=== PATIENT | male | born 1970 | race Caucasian/White ===

== ENCOUNTER 2017-08-12 08:21 | Emergency (ER) | payer SELFPAY ==
[~2017-08-12] VITALS: Ht 182.9 cm; Wt 75.0 kg
[~2017-08-12 08:21] MED LIST: DRV65 PO; SULF800T23 PO
[2017-08-12 08:29] VITALS: TEMP 36.6; Ht 182.9 cm; Wt 75.0 kg
[2017-08-12] MEDS ORDERED: OXYCODONE HCL IR 5 MG TAB (IMMEDIATE RELEASE) PO STA (08:40)
[2017-08-12 08:44] VITALS: O2SAT 100
--- NOTE | 2017-08-12 09:49 | DIAGNOSTIC IMAGING REPORT ---
C-SPINE ROUTINE 4 OR 5 VIEWS CLINICAL HISTORY: 47 years-old Male presenting with Neck pain. TECHNIQUE: Lateral, bilateral oblique, frontal, and open-mouth odontoid views of the cervical spine were obtained. COMPARISON: None. FINDINGS: Straightening of normal cervical lordosis. Degenerative change focally at C5-6. The C7 vertebral body is fully included within the [id number]. Mild osseous neural foraminal narrowing may be present at C5-6, greater on the left. Normal predental interval. No radiographic evidence of fracture or subluxation. The lateral masses of C1 articulate normally with C2. No prevertebral soft tissue swelling. IMPRESSION: Focal degenerative change at C5-6 with suspected left greater than right osseous neural foraminal narrowing at this level. Electronically signed by: Zac Cohen M.D. 08/12/2017 9:47 AM Dictated Date/Time: 08/12/2017 9:46 AM
--- NOTE | 2017-08-12 09:49 | DIAGNOSTIC IMAGING REPORT ---
RIGHT RIBS UNILATERAL WITH PA CHEST CLINICAL HISTORY: Right rib and back pain. COMPARISON STUDY: No previous studies for comparison. FINDINGS: The erect chest reveals no pneumothorax. There is an old distal right clavicular deformity. There is no focal pulmonary consolidation. There are bilateral rib deformities. In the absence of acute traumatic history, these are likely old. IMPRESSION: 1. No pneumothorax 2. Bilateral rib deformities. In the absence of an acute traumatic history, these are likely old Electronically signed by: Kerwin Billy M.D. 08/12/2017 9:48 AM Dictated Date/Time: 08/12/2017 9:45 AM
--- NOTE | 2017-08-12 09:50 | DIAGNOSTIC IMAGING REPORT ---
THORACIC SPINE 3 VIEWS ROUTINE CLINICAL HISTORY: 47 years-old Male presenting with R rib/back pain. TECHNIQUE: 3 views of the thoracic spine were obtained. COMPARISON: None. FINDINGS: Normal thoracic arthrosis. Allowing for overlapping bony structures, no evidence of vertebral body height loss to suggest fracture deformity. No evidence of subluxation. Partially visualized degenerative change at C5-6. The thoracolumbar junction is grossly normal. Visualized portions of the lungs and pleural spaces clear. IMPRESSION: Normal thoracic spine. Partially visualized degenerative change in the lower cervical region. Electronically signed by: Zac Cohen M.D. 08/12/2017 9:49 AM Dictated Date/Time: 08/12/2017 9:47 AM
--- NOTE | 2017-08-12 10:00 | DIAGNOSTIC IMAGING REPORT ---
L-SPINE MIN 4 VIEWS ROUTINE CLINICAL HISTORY: R rib/back pain COMPARISON STUDY: No previous studies for comparison. FINDINGS: There is a mild levoscoliosis. The bones are mildly osteopenic. No acute fractures or subluxations are visualized. There is mild gaseous prominence of the colon. IMPRESSION: Mild scoliosis. No acute fractures or subluxations identified. Electronically signed by: Kerwin Billy M.D. 08/12/2017 9:59 AM Dictated Date/Time: 08/12/2017 9:58 AM
[2017-08-12 10:39] VITALS: PULSE 52; O2SAT 98
[2017-08-12] MEDS ORDERED: OXYC1TAB3 PO (10:58)
[2017-08-12 11:15] VITALS: BP 155/96
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
== END 2017-08-12 11:20 | disposition home or self-care (01) ==
LOC: C.EDB 08:22 → C.EDA 11:20
DX: S20.211A Contusion of right front wall of thorax, initial encounter (principal); S20.229A Contusion of unspecified back wall of thorax, initial encounter; V86.59XA Driver of other special all-terrain or other off-road motor vehicle injured in nontraffic accident, initial encounter; F17.200 Nicotine dependence, unspecified, uncomplicated; Z80.9 Family history of malignant neoplasm, unspecified; Z83.3 Family history of diabetes mellitus; Z82.49 Family history of ischemic heart disease and other diseases of the circulatory system

== ENCOUNTER 2022-03-22 08:07 | Inpatient (IN) ==
[2022-03-22] MEDS ORDERED: SODIUM CHLORIDE 0.9% 1000ML 1,000 ML IV STA (08:31)
--- NOTE | 2022-03-22 08:40 | Emergency Department Note ---
Impression & Plan Lung mass, Smoker, Atypical chest pain, Alcohol abuse, Acute hyponatremia, Abnormal CT of the head, UTI (urinary tract infection) ED Provider Note NAME: KAYLIN JEWELL AGE: 51 SEX: M : 1970 ARRIVES VIA: Walk-In INFORMANT: Patient, ED PROVIDER(S): Murali Perdue DO CHIEF COMPLAINT: Dizziness HPI: The patient is a 51-year-old male who presented to the emergency department for an evaluation of dizziness. The patient describes headache and dizziness upon standing. He describes it as a near syncope. He describes it as feeling like he will pass out. The patient has had the symptoms for approximately 3 days. He states he also notices bilateral chest pain as well as difficulty breathing. He describes a headache. He does not know if he has a fever he was unable to check his temperature at home. He denies having any recent traveling. He also complains of body aches and muscle cramps. He states he has not been able to eat well for the last 3 days as well. He has had no exposure to COVID- 19 as far as he knows. He states he does use tobacco products. He has now been seen by provider for the symptoms. He presented to the emergency department today because symptoms started to worsen this morning. He denies having any unilateral weakness. ROS: See above HPI for pertinent positives & negatives. A total of 10 systems reviewed and were otherwise negative. PAST MEDICAL HISTORY: See Below PAST SURGICAL HISTORY: See Below FAMILY HISTORY: See Below SOCIAL HISTORY: See Below HOME MEDICATIONS: See Below ALLERGIES: See Below VITALS: See Below PHYSICAL EXAMINATION: GENERAL: Patient is awake and alert. He is somewhat listless appearing. EYES: The conjunctivae are clear. The pupils are round and reactive. EARS, NOSE, MOUTH AND THROAT: The nose is without any evidence of any deformity. Mucous membranes are dry. NECK: The neck is nontender and supple. RESPIRATORY: Normal respiratory effort is noted there is no evidence of wheezing rhonchi or rales CARDIOVASCULAR: Regular rate and rhythm noted there no murmurs rubs or gallops normal S1 normal S2. GASTROINTESTINAL: The abdomen is soft. Abdomen is nontender. MUSCULOSKELETAL/EXTREMITIES: There is no evidence of gross deformity full range of motion is noted in the hips and shoulders. SKIN: There is no obvious evidence of any rash. There are no petechiae, pallor or cyanosis noted. NEUROLOGIC: Patient is awake alert and oriented x3 strength is symmetric patellar reflexes are 2+ bilaterally MEDICAL DECISION MAKING: The patient is a 51-year-old male who does have a history of tobacco use as well as alcohol use who presented to the emergency department because of dizziness and generalized weakness. He was also experiencing some nausea and near syncope. He states he also had some chest pain and difficulty breathing. The patient was found to have an abnormal chest x-ray which showed a large pulmonary mass. Given his history further radiographic studies were obtained. He may have metastatic disease noted in the liver as well as in the [employer]ICE [employer] system. He was found of hyponatremia. I am unsure if this is secondary to an SIADH phenomenon from the pulmonary mass or from the abnormal head CT the head or if this is chronic secondary to his alcohol use. He was treated with IV fluids in the emergency department. He was reevaluated multiple times. The patient does not have good outpatient follow-up. For this reason I [facility] They have agreed to evaluate the patient in the emergency department for further management and disposition. He was also found to have signs of urinary tract infection on urinalysis. For this reason he was given IV antibiotics. Triage Nursing notes reviewed. Prior medical records reviewed Vital Signs: reviewed and remarkable for no significant abnormalities Differential diagnosis: Benign positional vertigo, dehydration, hypovolemia, anemia, tumor, infection, hypoglycemia, electrolyte abnormalities, cardiac sources, intracerebral event, toxicologic, neurologic, as well as other pathologies. ER treatment provided: See below Diagnostics interpreted by me: ECG: EKG was obtained in the emergency department. My interpretation is normal sinus rhythm at 65 bpm. There is no ectopy. Nonspecific T wave abnormalities were noted in the anterior leads. There was a suggestion of a U wave. No previous tracing was available. Cardiac Monitoring: An order was placed for continuous cardiac monitoring. The monitor shows a rate of 74 bpm with sinus rhythm. Laboratory studies: As stated above and show below. Imaging studies: See below Consultation(s): I discussed this case with Dr. Loomis who [facility]. Past Med/Surg History Medical History Alcohol abuse Back contusion Marijuana use Tobacco use Surgical History (Updated 03/22/22 @ 12:20 by Allison Loomis DO) No history of previous surgery Family History (Updated 03/22/22 @ 12:04 by Allison Loomis DO) Father Cancer Mother Hypertension Brother Brain cancer Social History (Updated 03/22/22 @ 12:22 by Allison Loomis DO) Smoking Status: Current every day smoker Hx Alcohol Use: Yes Alcohol type: beer Alcohol Intake Frequency: 4 or More x per/Week Alcohol Intake Frequency Comment: case per day Hx Substance Use: Yes Non-Prescribed Medications: Marijuana Current Living Situation: Alone How many Children do You have Comment: has one daughter who is a nurse Feels Safe at Home: Yes 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 [employer] Allergies Allergies Allergy/AdvReac Type Severity Reaction Status Date / Time Penicillins AdvReac Intermediate upset Unverified 03/22/22 11:12 stomach Home Meds Home Medications Medication Instructions Recorded Confirmed No Known Home Medications 03/22/22 03/22/22 Results & Data (ED) Vital Signs Vital Signs - 24 hr 03/22/22 08:11 03/22/22 08:51 Temperature 36.5 C Temperature Source Oral Pulse Rate 74 Pulse Rhythm Regular Pulse Strength Normal Respiratory Rate 20 Respiratory Effort / Characteristics Non-Labored Spontaneous Respiratory Depth Normal Respiratory Pattern Regular Blood Pressure 139/82 Blood Pressure Mean 101 Blood Pressure Position Sitting Pulse Oximetry 94 98 Oxygen Delivery Method Room Air Room Air Sepsis Recent Fever Within 48 Hours No Sepsis New/Unexplained Change in Mental Status No Sepsis Action Taken by Nursing No Action Required Home Medications Current Medication List: was personally reviewed by me Laboratory Data Attestation: I reviewed the patient's lab results. Result diagrams: 03/22/22 08:30 03/22/22 08:30 Lab Results 03/22/22 03/22/22 03/22/22 Range/Units 08:30 08:30 08:30 WBC 10.29 (4.8-10.8) K/uL RBC 3.80 L (4.7-6.1) M/uL Hgb 13.2 L (14.0-18.0) g/dL Hct 36.3 L (42-52) % MCV 95.5 (80-100) fL MCH 34.7 H (25-34) pg MCHC 36.4 H (32-36) g/dL RDW Std Deviation 43.5 (36.4-46.3) fL RDW Coeff of Juvenal 12.6 (11.5-14.5) % Plt Count 231 (130-400) K/uL MPV 9.8 (7.4-10.4) fL Immature Gran % (Auto) 0.5 % Neut % (Auto) 76.1 % Lymph % (Auto) 8.6 % [place] % (Auto) 14.4 % Eos % (Auto) 0.2 % Baso % (Auto) 0.2 % Neut # (Auto) 7.84 H (1.4-6.5) K/uL Lymph # (Auto) 0.88 L (1.2-3.4) K/uL [place] # (Auto) 1.48 H (0.11-0.59) K/uL Eos # (Auto) 0.02 (0-0.5) K/uL Baso # (Auto) 0.02 (0-0.2) K/uL Immature Gran # (Auto) 0.05 H (0.00-0.02) K/uL PT 11.1 (9.0-12.0) Seconds INR 1.0 (0.9-1.1) APTT 30.4 (21.0-31.0) Seconds PTT Ratio 1.1 D-Dimer 1490 H* (0-500) ug/L FEU Sodium (136-145) mmol/L Potassium (3.5-5.1) mmol/L Chloride (98-107) mmol/L Carbon Dioxide (21-32) mmol/L Anion Gap (3-11) BUN (6-23) mg/dl Creatinine (0.6-1.4) mg/dl Est Cr Clr Drug Dosing ml/min Est GFR ( Amer) ml/min Est GFR (Non-Af Amer) ml/min BUN/Creatinine Ratio (10-20) Glucose (70-99(Fasting)) mg/dl Osmolality (280-300) mOsm/kg Calcium (8.5-10.1) mg/dl Total Bilirubin (0.2-1.0) mg/dl AST (13-39) U/L ALT (7-52) U/L Alkaline Phosphatase (34-104) U/L Troponin I High Sens 2.6 (0-20) pg/ml Total Protein (6.0-8.3) gm/dl Albumin (3.4-5.0) gm/dl Globulin (2.5-4.0) gm/dl Albumin/Globulin Ratio (0.9-2) Lipase (11-82) U/L Urine Color Urine Appearance (Clear) Urine pH (4.5-7.5) Ur Specific [place] (1.000-1.030) Urine Protein (Negative) Urine Glucose (UA) (Negative) Urine Ketones (Negative) Urine Blood (Negative) Urine Nitrite (Negative) Urine Bilirubin (Negative) Urine Urobilinogen (Negative) Ur Leukocyte Esterase (Negative) Urine WBC (Auto) (0-5) /hpf Urine RBC (Auto) (0-4) /hpf U Hyaline Cast (Auto) (0-5) /lpf U Epithel Cells (Auto) (0-5) /lpf Urine Bacteria (Auto) (Negative) SARS-CoV-2, RNA, NAAT (NEGATIVE) 03/22/22 03/22/22 03/22/22 Range/Units 08:30 08:30 08:45 WBC (4.8-10.8) K/uL RBC (4.7-6.1) M/uL Hgb (14.0-18.0) g/dL Hct (42-52) % MCV (80-100) fL MCH (25-34) pg MCHC (32-36) g/dL RDW Std Deviation (36.4-46.3) fL RDW Coeff of Juvenal (11.5-14.5) % Plt Count (130-400) K/uL MPV (7.4-10.4) fL Immature Gran % (Auto) % Neut % (Auto) % Lymph % (Auto) % [place] % (Auto) % Eos % (Auto) % Baso % (Auto) % Neut # (Auto) (1.4-6.5) K/uL Lymph # (Auto) (1.2-3.4) K/uL [place] # (Auto) (0.11-0.59) K/uL Eos # (Auto) (0-0.5) K/uL Baso # (Auto) (0-0.2) K/uL Immature Gran # (Auto) (0.00-0.02) K/uL PT (9.0-12.0) Seconds INR (0.9-1.1) APTT (21.0-31.0) Seconds PTT Ratio D-Dimer (0-500) ug/L FEU Sodium 121 L (136-145) mmol/L Potassium 4.4 (3.5-5.1) mmol/L Chloride 86 L (98-107) mmol/L Carbon Dioxide 25 (21-32) mmol/L Anion Gap 10 (3-11) BUN 6 (6-23) mg/dl Creatinine 0.57 L (0.6-1.4) mg/dl Est Cr Clr Drug Dosing 145.0 ml/min Est GFR ( Amer) 135.9 ml/min Est GFR (Non-Af Amer) 117.2 ml/min BUN/Creatinine Ratio 10.5 (10-20) Glucose 101 H (70-99(Fasting)) mg/dl Osmolality 260 L (280-300) mOsm/kg Calcium 9.1 (8.5-10.1) mg/dl Total Bilirubin 0.8 (0.2-1.0) mg/dl AST 57 H (13-39) U/L ALT 39 (7-52) U/L Alkaline Phosphatase 153 H (34-104) U/L Troponin I High Sens (0-20) pg/ml Total Protein 7.9 (6.0-8.3) gm/dl Albumin 4.0 (3.4-5.0) gm/dl Globulin 3.9 (2.5-4.0) gm/dl Albumin/Globulin Ratio 1.0 (0.9-2) Lipase 123 H (11-82) U/L Urine Color Urine Appearance (Clear) Urine pH (4.5-7.5) Ur Specific [place] (1.000-1.030) Urine Protein (Negative) Urine Glucose (UA) (Negative) Urine Ketones (Negative) Urine Blood (Negative) Urine Nitrite (Negative) Urine Bilirubin (Negative) Urine Urobilinogen (Negative) Ur Leukocyte Esterase (Negative) Urine WBC (Auto) (0-5) /hpf Urine RBC (Auto) (0-4) /hpf U Hyaline Cast (Auto) (0-5) /lpf U Epithel Cells (Auto) (0-5) /lpf Urine Bacteria (Auto) (Negative) SARS-CoV-2, RNA, NAAT NEGATIVE (NEGATIVE) 04/23/22 Range/Units 08:50 WBC (4.8-10.8) K/uL RBC (4.7-6.1) M/uL Hgb (14.0-18.0) g/dL Hct (42-52) % MCV (80-100) fL MCH (25-34) pg MCHC (32-36) g/dL RDW Std Deviation (36.4-46.3) fL RDW Coeff of Juvenal (11.5-14.5) % Plt Count (130-400) K/uL MPV (7.4-10.4) fL Immature Gran % (Auto) % Neut % (Auto) % Lymph % (Auto) % [place] % (Auto) % Eos % (Auto) % Baso % (Auto) % Neut # (Auto) (1.4-6.5) K/uL Lymph # (Auto) (1.2-3.4) K/uL [place] # (Auto) (0.11-0.59) K/uL Eos # (Auto) (0-0.5) K/uL Baso # (Auto) (0-0.2) K/uL Immature Gran # (Auto) (0.00-0.02) K/uL PT (9.0-12.0) Seconds INR (0.9-1.1) APTT (21.0-31.0) Seconds PTT Ratio D-Dimer (0-500) ug/L FEU Sodium (136-145) mmol/L Potassium (3.5-5.1) mmol/L Chloride (98-107) mmol/L Carbon Dioxide (21-32) mmol/L Anion Gap (3-11) BUN (6-23) mg/dl Creatinine (0.6-1.4) mg/dl Est Cr Clr Drug Dosing ml/min Est GFR ( Amer) ml/min Est GFR (Non-Af Amer) ml/min BUN/Creatinine Ratio (10-20) Glucose (70-99(Fasting)) mg/dl Osmolality (280-300) mOsm/kg Calcium (8.5-10.1) mg/dl Total Bilirubin (0.2-1.0) mg/dl AST (13-39) U/L ALT (7-52) U/L Alkaline Phosphatase (34-104) U/L Troponin I High Sens (0-20) pg/ml Total Protein (6.0-8.3) gm/dl Albumin (3.4-5.0) gm/dl Globulin (2.5-4.0) gm/dl Albumin/Globulin Ratio (0.9-2) Lipase (11-82) U/L Urine Color Yellow Urine Appearance Clear (Clear) Urine pH 6.5 (4.5-7.5) Ur Specific [place] 1.010 (1.000-1.030) Urine Protein Trace H (Negative) Urine Glucose (UA) Negative (Negative) Urine Ketones Trace H (Negative) Urine Blood Negative (Negative) Urine Nitrite Negative (Negative) Urine Bilirubin Negative (Negative) Urine Urobilinogen Negative (Negative) Ur Leukocyte Esterase 2+ H (Negative) Urine WBC (Auto) >30 H (0-5) /hpf Urine RBC (Auto) 0-4 (0-4) /hpf U Hyaline Cast (Auto) 1-5 (0-5) /lpf U Epithel Cells (Auto) 0-5 (0-5) /lpf Urine Bacteria (Auto) 4+ H (Negative) SARS-CoV-2, RNA, NAAT (NEGATIVE) Administered Medications Discontinued Medications Sodium Chloride (Nss 1000ml) 1,000 mls @ 999 mls/hr IV .Q1H1M STA Stop: 03/22/22 09:31 Last Infusion: 03/22/22 09:49 Dose: 0 mls/hr Documented by: [id number] Admin: 03/22/22 08:48 Dose: 999 mls/hr Documented by: [id number] Ceftriaxone Sodium (Rocephin) 1,000 mg in 50 mls @ 100 mls/hr IV NOW STA Stop: 03/22/22 10:45 Last Infusion: 03/22/22 11:09 Dose: 0 mls/hr Documented by: [id number] Admin: 03/22/22 10:34 Dose: 100 mls/hr Documented by: [id number] Ioversol (Optiray 320 125ml) 120 ml IV ONCE ONE Stop: 03/22/22 10:10 Last Admin: 03/22/22 10:10 Dose: 120 ml Documented by: [id number] Imaging Data Radiologist's Impression: Chest X-Ray 03/22/22 08:31 XR chest 1V portable CLINICAL HISTORY: Atypical chest pain. COMPARISON STUDY: Chest radiograph August 12, 2017. FINDINGS: No pneumothorax or pleural effusion is noted. Cardiac size is normal. Note is made of a 5.8 cm circumscribed mass-like density which projects over the left mid to lower lung. This may be parenchymal or pleural-based. This is new since prior exam. A 2 cm nodular density projects over the right hilum. There is slight asymmetric prominence of the right hilum. No evidence for pulmonary edema. Multiple old bilateral rib fractures are incidentally noted. IMPRESSION: 1. 5.8 cm mass-like density which projects over the mid to lower left lung. This may be parenchymal or pleural-based. This is suspicious for a neoplastic proc ess. A CT of the chest with contrast is recommended for further evaluation. 2. 2 cm nodular density which projects over the right hilum which can also be assessed on follow-up chest CT. ACT 112: Positive. There are findings on this exam that require communication between the performing entity and the patient following Patient Test Result Information Act ([place] Act 112) guidelines. Electronically signed by: Telly Reilly M.D. 03/22/2022 9:10 AM Chest CTA 03/22/22 09:46 CT ANGIOGRAPHY OF THE CHEST, PULMONARY EMBOLUS PROTOCOL CLINICAL HISTORY: Shortness of breath. Dizziness. Abnormal chest radiograph. COMPARISON STUDY: Chest radiograph performed earlier today. Chest radiograph August 12, 2017. TECHNIQUE: Following IV administration of 120 mL of Optiray, helical axial images of the chest were obtained utilizing the pulmonary embolus protocol. Maximal intensity projections and sagittal and coronal reformats were viewed on an independent 3D workstation. IV contrast was administered without complication. Automated exposure control was utilized for the study. A dose lowering technique was utilized adhering to the principles of ALARA. CT DOSE: 890.86 mGy.cm FINDINGS: No pulmonary emboli are identified. However, the right upper and righ t lower lobe pulmonary arteries are narrowed by right hilar lymph nodes. Conglomerate right hilar node measures 4.1 x 2.9 cm. A subcarinal lymph node measures 2.2 x 1.9 cm. Note is made of a 5.4 cm lobulated mass within the left lower lobe. There is a 3 cm subpleural mass within the superior segment of the right lower lobe. Several smaller pulmonary nodules are noted. There is evidence for a previous granulomas process. No pneumothorax or pleural effusion is present. Right upper, middle and lower lobe bronchi are narrowed by adenopathy. No suspicious lesions within the bony thorax. There are multiple bilateral rib fractures. Note is made of innumerable hypodense hepatic lesions which measure up to approximately [address] bilateral adrenal nodules are present. Right adrenal nodule measures 1.6 cm. Peripancreatic lymph node measures 1.8 x 1.4 cm. IMPRESSION: 1. No pulmonary emboli identified. 2. 5.4 cm left lower lobe mass and 3 cm subpleural right lower lobe mass. Subcarinal and conglomerate right hilar lymphadenopathy. These findings are consistent with a neoplastic process. Differential considerations would include bronchogenic malignancy such as small cell. An abdominal primary given extensive hepatic metastatic disease is also within the differential. A CT of the abdomen and pelvis with IV contrast could be obtained for further evaluation. Pulmonary consultation is recommended. ACT 112: Negative or not required by law. Electronically signed by: Telly Reilly M.D. 03/22/2022 10:[address] 03/22/22 09:46 CT OF THE HEAD WITHOUT CONTRAST CLINICAL HISTORY: dizzy, pulmonary mass COMPARISON STUDY: No previous studies for comparison. TECHNIQUE: Helical axial images of the head were obtained without IV contrast. Automated exposure control was utilized for the study. A dose lowering technique was utilized adhering to the principles of ALARA. FINDINGS: No acute intracranial hemorrhage, midline shift or mass effect is present. Ventricular system is unremarkable. Basal cisterns are patent. There are no extra-axial collections. White matter hypodensity suggests small vessel disease. Note is made of 2 adjacent subependymal nodules along the occipital horn of the left lateral ventricle shown on axial image 14 of 28. The larger nodule measures 1.2 cm contains a calcification. No additional intracranial masses are identified. There are no suspicious calvarial lesions. IMPRESSION: 1. No acute intracranial hemorrhage or mass effect. 2. Two adjacent subependymal nodules along the occipital horn of left lateral ventricle. These are nonspecific. Although not typical for metastatic disease, this possibility cannot be completely excluded given the pulmonary and hepatic lesions. ACT 112: Negative or not required by law. Electronically signed by: Telly Reilly M.D. 03/22/2022 10:27 AM Discharge Plan Visit Data Chief Complaint: Vomiting Stated Complaint: VOMITING,HEADACHE, DIZZY, RIB PAIN ED Provider: Murali Perdue Discharge Problem: Lung mass, Smoker, Atypical chest pain, Alcohol abuse, Acute hyponatremia, Abnormal CT of the head, UTI (urinary tract infection) Patient Disposition: Admitted As Inpatient Discharge Instructions Interventions: ED Discharge Assessment Last Done: 03/22/22 11:46
[2022-03-22 09:04] LABS: Basophils # (auto) 0.02 K/uL (0-0.2); Basophils % (auto) 0.2 %; Eosinophils # (auto) 0.02 K/uL (0-0.5); Eosinophils % (auto) 0.2 %; Hematocrit (blood only) 36.3 % (42-52); Hemoglobin 13.2 g/dL (14.0-18.0); Immature Granulocytes # (auto) 0.05 K/uL (0.00-0.02); Immature Granulocytes % (auto) 0.5 %; Lymphocytes # (auto) 0.88 K/uL (1.2-3.4); Lymphocytes % (auto) 8.6 %; Mean Corpuscular Hemoglobin 34.7 pg (25-34); Mean Corpuscular Hgb Conc 36.4 g/dL (32-36); Mean Corpuscular Volume 95.5 fL (80-100); Mean Platelet Volume 9.8 fL (7.4-10.4); Monocytes # (auto) 1.48 K/uL (0.11-0.59); Monocytes % (auto) 14.4 %; Neutrophils # (auto) 7.84 K/uL (1.4-6.5); Neutrophils % (auto) 76.1 %; Platelet Count 231 K/uL (130-400); RDW Coefficient of Variation 12.6 % (11.5-14.5); RDW Standard Deviation 43.5 fL (36.4-46.3); White Blood Count 10.29 K/uL (4.8-10.8)
[2022-03-22 09:11] LABS: Appearance Urine Clear (Clear); Bacteria Urine Automated 4+ (Negative); Bilirubin Urine Negative (Negative); Blood Urine Negative (Negative); Color Urine Yellow; Epithelial Cell Urine Auto 0-5 /lpf (0-5); Glucose Urine UA Negative (Negative); Ketones Urine Trace (Negative); Leukocyte Esterase Urine 2+ (Negative); Nitrite Urine Negative (Negative); Protein Urine Trace (Negative); RBC Urine Automated 0-4 /hpf (0-4); Urobilinogen Urine Negative (Negative); WBC Urine Automated >30 /hpf (0-5); pH Urine 6.5 (4.5-7.5)
--- NOTE | 2022-03-22 09:11 | XRay Report ---
XR chest 1V portable CLINICAL HISTORY: Atypical chest pain. COMPARISON STUDY: Chest radiograph August 12, 2017. FINDINGS: No pneumothorax or pleural effusion is noted. Cardiac size is normal. Note is made of a 5.8 cm circumscribed mass-like density which projects over the left mid to lower lung. This may be paren chymal or pleural-based. This is new since prior exam. A 2 cm nodular density projects over the right hilum. There is slight asymmetric prominence of the right hilum. No evidence for pulmonary edema. Mu ltiple old bilateral rib fractures are incidentally noted. IMPRESSION: 1. 5.8 cm mass-like density which projects over the mid to lower left lung. This may be parenchymal o r pleural-based. This is suspicious for a neoplastic process. A CT of the chest with contrast is debbie mmended for further evaluation. 2. 2 cm nodular density which projects over the right hilum which can also be assessed on follow-up c hest CT. ACT 112: Positive. There are findings on this exam that require communication between the performing entity and the patient following Patient Test Result Information Act ([place] Act 112) guidelines. Electronically signed by: Telly Reilly M.D. 03/22/2022 9:10 AM
[2022-03-22 09:12] LABS: BUN Creatinine Ratio 10.5 (10-20); Bilirubin,Total 0.8 mg/dl (0.2-1.0); Calcium 9.1 mg/dl (8.5-10.1); Est GFR (African American) 135.9 ml/min; Est GFR (Non-African American) 117.2 ml/min; Globulin 3.9 gm/dl (2.5-4.0); Potassium 4.4 mmol/L (3.5-5.1); Total Protein 7.9 gm/dl (6.0-8.3)
[2022-03-22 09:26] LABS: Partial Thromboplastin Ratio 1.1; Partial Thromboplastin Time 30.4 Seconds (21.0-31.0); Prothrombin Time 11.1 Seconds (9.0-12.0)
[2022-03-22 09:49] LABS: D Dimer 1490 ug/L FEU (0-500)
[2022-03-22] MEDS ORDERED: OPTIRAY 320 125ml IV ONE (10:09)
[2022-03-22] MEDS ORDERED: cefTRIAXone SODIUM 1,000 MG/50 ML BAG IV STA (10:16)
--- NOTE | 2022-03-22 10:29 | CT Scan Report ---
CT OF THE HEAD WITHOUT CONTRAST CLINICAL HISTORY: dizzy, pulmonary mass COMPARISON STUDY: No previous studies for comparison. TECHNIQUE: Helical axial images of the head were obtained without IV contrast. Automated exposure con trol was utilized for the study. A dose lowering technique was utilized adhering to the principles o f ALARA. FINDINGS: No acute intracranial hemorrhage, midline shift or mass effect is present. Ventricular syst em is unremarkable. Basal cisterns are patent. There are no extra-axial collections. White matter hyp odensity suggests small vessel disease. Note is made of 2 adjacent subependymal nodules along the occ ipital horn of the left lateral ventricle shown on axial image 14 of 28. The larger nodule measures 1 .2 cm contains a calcification. No additional intracranial masses are identified. There are no suspic ious calvarial lesions. IMPRESSION: 1. No acute intracranial hemorrhage or mass effect. 2. Two adjacent subependymal nodules along the occipital horn of left lateral ventricle. These are no nspecific. Although not typical for metastatic disease, this possibility cannot be completely exclude d given the pulmonary and hepatic lesions. ACT 112: Negative or not required by law. Electronically signed by: Telly Reilly M.D. 03/22/2022 10:27 AM
--- NOTE | 2022-03-22 10:43 | CT Scan Report ---
CT ANGIOGRAPHY OF THE CHEST, PULMONARY EMBOLUS PROTOCOL CLINICAL HISTORY: Shortness of breath. Dizziness. Abnormal chest radiograph. COMPARISON STUDY: Chest radiograph performed earlier today. Chest radiograph August 12, 2017. TECHNIQUE: Following IV administration of 120 mL of Optiray, helical axial images of the chest were o btained utilizing the pulmonary embolus protocol. Maximal intensity projections and sagittal and cor onal reformats were viewed on an independent 3D workstation. IV contrast was administered without co mplication. Automated exposure control was utilized for the study. A dose lowering technique was ut ilized adhering to the principles of ALARA. CT DOSE: 890.86 mGy.cm FINDINGS: No pulmonary emboli are identified. However, the right upper and right lower lobe pulmonar y arteries are narrowed by right hilar lymph nodes. Conglomerate right hilar node measures 4.1 x 2.9 cm. A subcarinal lymph node measures 2.2 x 1.9 cm. Note is made of a 5.4 cm lobulated mass within the left lower lobe. There is a 3 cm subpleural mass within the superior segment of the right lower lobe . Several smaller pulmonary nodules are noted. There is evidence for a previous granulomas process. N o pneumothorax or pleural effusion is present. Right upper, middle and lower lobe bronchi are narrowe d by adenopathy. No suspicious lesions within the bony thorax. There are multiple bilateral rib fract ures. Note is made of innumerable hypodense hepatic lesions which measure up to approximately [address] bilateral adrenal nodules are present. Right adrenal nodule measures 1.6 cm. Peripancreatic lymp h node measures 1.8 x 1.4 cm. IMPRESSION: 1. No pulmonary emboli identified. 2. 5.4 cm left lower lobe mass and 3 cm subpleural right lower lobe mass. Subcarinal and conglomerate right hilar lymphadenopathy. These findings are consistent with a neoplastic process. Differential c onsiderations would include bronchogenic malignancy such as small cell. An abdominal primary given ex tensive hepatic metastatic disease is also within the differential. A CT of the abdomen and pelvis wi th IV contrast could be obtained for further evaluation. Pulmonary consultation is recommended. ACT 112: Negative or not required by law. Electronically signed by: Telly Reilly M.D. 03/22/2022 10:41 AM
--- NOTE | 2022-03-22 11:04 | History & Physical Report ---
Date of Service March 22, 2022 Assessment & Plan (1) Vomiting: Plan: Recent vomiting and intolerance to food. He also had diarrhea which is now resolved, but may have had a GI illness of some sort. Other etiologies include but are not limited to drugs including alcohol or street marijuana that may have chandler laced with toxin, alcoholic gastritis/esophagitis (no change in BMs and no bloody vomitus), or in response to his low sodium level. He also has a concerning finding on head CT which may be consistent with brain mets. Will work on correcting electrolytes, obtaining UDS and palliating when needed with antiemetics. MRI brain with contrast now. (2) Hyponatremia: Plan: Likely multifactorial from a combination of tea and toast diet, recent vomiting and poor PO intake, and possibly lung mass contributing. He received 1 L saline this am. Will give banana bag and repeat Na now. Trend throughout the day and correct no more than 129 today. Urine studies pending. (3) Lung mass: Plan: Concerning for malignancy in setting of cancer. Likely the cause of chest discomfort with negative troponin and CTA revealing no pneumonia or PE. Consult pulm for assistance with workup. (4) UTI (urinary tract infection): Plan: Rocephin started pending urine culture. (5) Blurry vision: Plan: CT head found two adjacent subependymal nodules along the occipital horn of left lateral ventricle. These are nonspecific. Although not typical for metastatic disease, this possibility cannot be completely excluded given the pulmonary and hepatic lesions. MRI brain with contrast now. (6) Smoker: Plan: Nicoderm patch added to regimen. (7) Alcohol abuse: Plan: Encouraged to quit smoking and drinking alcohol as this is terrible for his health. He verbalized understanding. No evidence of withdrawal at this time. Will add gabapentin taper given the high quantity of alcohol consumed. Ativan PRN. (8) DVT prophylaxis: Plan: SCDs, hold on chemoprophylaxis until brain mets ruled out Full Code Dispo-to PCU given the critical hyponatremia. All plans and findings were discussed with the patient and his mother at bedside in the ER. They verbalized understanding and agreement with the plan. Suspect no discharge until at least Thursday. Allison Loomis DO [facility] History of Present Illness Chief Complaint: vomiting Primary Care Provider: Wes A. Sulman, DO 51 yo M smoker presents with vomiting, chest pain and lighthead edness/presyncope. Found to have 5cm lung mass on the left per CT scan of the chest. UTI also present in man. Hyponatremia in setting of dehydration and new lung mass with Na 121. Received 1L NSS and Rocephin 1gm IV. Concerning features on CT head may indicate metastatic disease. Pt states that he began having vomiting and diarrhea 4-5 days ago. The diarrhea stopped but he hasn't been able to keep down anything to eat or drink. He is a heavy drinker of alcohol taking in a case of beer daily "on a good day" with last drink just prior to arrival this morning. He smokes 3 packs of rolled cigarettes daily and smokes marijuana "when I can get it." He describes a constant headache on the top of his head for the last 5 days and also blurry vision. He is nearsighted at baseline and typically uses OTC readers, but now has difficulty seeing signs at a distance. For his headache he reports taking 2 tylenol and 2 Advil three times daily for the past few days, and this hasn't helped his headache. He denies fevers, chills, but reports increased frequency of urination and during this 30 minute interview, he went to the bathroom at least twice. Has a cough present which he describes as his typical "smoker's cough." This is nonproductive and he denies any recent changes in cough frequency or sputum changes. He reports having bilateral chest pain that is chronic for one month and is lateral lower along rib line. He denies any triggers to make this worse or alleviating factors. He describes feeling lightheaded but is able to walk. He denies any focal weakness on the right leg, but states that he is cramping in that leg more for the last few days. He has been using Icy Hot on his knees at night to help him sleep , reporting stiffness and discomfort. On average he does drink more liquids than he eats solid foods given the amount of alcohol he takes in regularly. He is present with his mother at bedside who corroborated the information; the patient lives alone but they work together. Allergies Allergy/AdvReac Type Severity Reaction Status Date / Time Penicillins AdvReac Intermediate upset Unverified 03/22/22 11:12 stomach Home Medications Medication Instructions Recorded Confirmed Type No Known Home Medications 03/22/22 03/22/22 History Past Med/Surg History Medical History Alcohol abuse Back contusion Marijuana use Tobacco use Surgical History (Updated 03/22/22 @ 12:20 by Allison Loomis DO) No history of previous surgery Family History (Updated 03/22/22 @ 12:04 by Allison Loomis DO) Father Cancer Mother Hypertension Brother Brain cancer Social History (Updated 03/22/22 @ 12:22 by Allison Loomis DO) Smoking Status: Current every day smoker Hx Alcohol Use: Yes Alcohol type: beer Alcohol Intake Frequency: 4 or More x per/Week Alcohol Intake Frequency Comment: case per day Hx Substance Use: Yes Non-Prescribed Medications: Marijuana Current Living Situation: Alone How many Children do You have Comment: has one daughter who is a nurse Feels Safe at Home: Yes 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 Physical Exam Physical Exam: CONSTITUTIONAL: thin, vitals as above, generally well- appearing, NAD EYES: EOMI bilaterally, PERRL, normal conjunctivae, no scleral icterus, no fund oscopic abnormality in his nondilated eyes. ENT: external ear and nose normal, oropharynx clear, poor dentition with missing teeth NECK: trachea midline, no lymphadenopathy RESPIRATORY: clear to auscultation bilaterally, no crackles, rales or wheezes, normal respiratory effort CARDIOVASCULAR: regular rate and rhythm, S1 and 2 heard without murmurs, gallops or rubs, no JVD, no peripheral edema CHEST: inspection of chest was normal GASTROINTESTINAL: soft, TTP in RUQ, no hepatomegaly, no guarding MUSCULOSKELETAL: strength 5/5 throughout, head is normocephalic and atraumatic, neck supple, normal palpation of chest wall without tenderness SKIN: warm and dry, no rashes (could not see legs because of restrictive jeans and boots.) NEUROLOGIC: PERRL, EOMI, no facial palsy, no dysarthria. Touch, pain and proprioception normal. CN 2-12 grossly intact, no sensory deficit, normal cognition, normal speech, no tremor PSYCHIATRIC: alert cooperative and oriented to person, place and time. Euthymic mood, makes good eye contact, language grossly intact, recent and remote memory grossly intact. Results & Data Results & Data ([facility]) Vital Signs (Past 12 Hours) Vital Signs Temp Pulse Resp BP Pulse Ox 03/22/22 08:51 98 03/22/22 08:11 36.5 C 74 20 139/82 94 Laboratory Results Short CBC 03/22/22 Range/Units 08:30 WBC 10.29 (4.8-10.8) K/uL Hgb 13.2 L (14.0-18.0) g/dL Hct 36.3 L (42-52) % Plt Count 231 (130-400) K/uL BMP 03/22/22 08:30 Sodium 121 L Potassium 4.4 Chloride 86 L Carbon Dioxide 25 BUN 6 Creatinine 0.57 L Glucose 101 H Calcium 9.1 Liver Function 03/22/22 Range/Units 08:30 Total Bilirubin 0.8 (0.2-1.0) mg/dl AST 57 H (13-39) U/L ALT 39 (7-52) U/L Alkaline Phosphatase 153 H (34-104) U/L Albumin 4.0 (3.4-5.0) gm/dl Urine 03/22/22 Range/Units 08:50 Urine Color Yellow Urine Appearance Clear (Clear) Urine pH 6.5 (4.5-7.5) Ur Specific [place] 1.010 (1.000-1.030) Urine Protein Trace H (Negative) Urine Glucose (UA) Negative (Negative) Diagnostic Findings Chest X-Ray 03/22/22 08:31 XR chest 1V portable CLINICAL HISTORY: Atypical chest pain. COMPARISON STUDY: Chest radiograph August 12, 2017. FINDINGS: No pneumothorax or pleural effusion is noted. Cardiac size is normal. Note is made of a 5.8 cm circumscribed mass-like density which projects over the left mid to lower lung. This may be parenchymal or pleural-based. This is new since prior exam. A 2 cm nodular density projects over the right hilum. There is slight asymmetric prominence of the right hilum. No evidence for pulmonary edema. Multiple old bilateral rib fractures are incidentally noted. IMPRESSION: 1. 5.8 cm mass-like density which projects over the mid to lower left lung. This may be parenchymal or pleural-based. This is suspicious for a neoplastic process. A CT of the chest with contrast is recommended for further evaluation. 2. 2 cm nodular density which projects over the right hilum which can also be assessed on follow-up chest CT. ACT 112: Positive. There are findings on this exam that require communication between the performing entity and the patient following Patient Test Result Information Act ([place] Act 112) guidelines. Electronically signed by: Telly Reilly M.D. 03/22/2022 9:10 AM Chest CTA 03/22/22 09:46 CT ANGIOGRAPHY OF THE CHEST, PULMONARY EMBOLUS PROTOCOL CLINICAL HISTORY: Shortness of breath. Dizziness. Abnormal chest radiograph. COMPARISON STUDY: Chest radiograph performed earlier today. Chest radiograph August 12, 2017. TECHNIQUE: Following IV administration of 120 mL of Optiray, helical axial images of the chest were obtained utilizing the pulmonary embolus protocol. Maximal intensity projections and sagittal and coronal reformats were viewed on an independent 3D workstation. IV contrast was administered without complication. Automated exposure control was utilized for the study. A dose lowering technique was utilized adhering to the principles of ALARA. CT DOSE: 890.86 mGy.cm FINDINGS: No pulmonary emboli are identified. However, the right upper and rig ht lower lobe pulmonary arteries are narrowed by right hilar lymph nodes. Conglomerate right hilar node measures 4.1 x 2.9 cm. A subcarinal lymph node measures 2.2 x 1.9 cm. Note is made of a 5.4 cm lobulated mass within the left lower lobe. There is a 3 cm subpleural mass within the superior segment of the right lower lobe. Several smaller pulmonary nodules are noted. There is evidence for a previous granulomas process. No pneumothorax or pleural effusion is present. Right upper, middle and lower lobe bronchi are narrowed by adenopathy. No suspicious lesions within the bony thorax. There are multiple bilateral rib fractures. Note is made of innumerable hypodense hepatic lesions which measure up to approximately [address] bilateral adrenal nodules are present. Right adrenal nodule measures 1.6 cm. Peripancreatic lymph node measures 1.8 x 1.4 cm. IMPRESSION: 1. No pulmonary emboli identified. 2. 5.4 cm left lower lobe mass and 3 cm subpleural right lower lobe mass. Subcarinal and conglomerate right hilar lymphadenopathy. These findings are consistent with a neoplastic process. Differential considerations would include bronchogenic malignancy such as small cell. An abdominal primary given extensive hepatic metastatic disease is also within the differential. A CT of the abdomen and pelvis with IV contrast could be obtained for further evaluation. Pulmonary consultation is recommended. ACT 112: Negative or not required by law. Electronically signed by: Telly Reilly M.D. 03/22/2022 10:[address] 03/22/22 09:46 CT OF THE HEAD WITHOUT CONTRAST CLINICAL HISTORY: dizzy, pulmonary mass COMPARISON STUDY: No previous studies for comparison. TECHNIQUE: Helical axial images of the head were obtained without IV contrast. Automated exposure control was utilized for the study. A dose lowering technique was utilized adhering to the principles of ALARA. FINDINGS: No acute intracranial hemorrhage, midline shift or mass effect is present. Ventricular system is unremarkable. Basal cisterns are patent. There are no extra-axial collections. White matter hypodensity suggests small vessel disease. Note is made of 2 adjacent subependymal nodules along the occipital horn of the left lateral ventricle shown on axial image 14 of 28. The larger nodule measures 1.2 cm contains a calcification. No additional intracranial masses are identified. There are no suspicious calvarial lesions. IMPRESSION: 1. No acute intracranial hemorrhage or mass effect. 2. Two adjacent subependymal nodules along the occipital horn of left lateral ventricle. These are nonspecific. Although not typical for metastatic disease, this possibility cannot be completely excluded given the pulmonary and hepatic lesions. ACT 112: Negative or not required by law. Electronically signed by: Telly Reilly M.D. 03/22/2022 10:27 AM Code Status & VTE Plan VTE Prophylaxis Plan VTE Prophylaxis will be ordered: Yes
[2022-03-22] MEDS ORDERED: GABAPENTIN 1200MG ALCOHOL WITHDRAWAL LOAD PO STA (12:02)
--- NOTE | 2022-03-22 13:02 | XRay Report ---
ORBIT RADIOGRAPHS 3 VIEWS HISTORY: pre-MRI screening. COMPARISON: Head CT performed earlier today. FINDINGS: There are no radiopaque foreign bodies identified within the orbits. IMPRESSION: No radiopaque foreign bodies identified within the orbits. ACT 112: Negative or not required by law. Electronically signed by: Telly Reilly M.D. 03/22/2022 1:01 PM
[2022-03-22] MEDS ORDERED: GADOBUTROL 30ML VIAL IV ONE (13:33)
[2022-03-22] MEDS ORDERED: ONDANSETRON INJ 2 MG/ML 2 ML VIAL IV PRN (13:59)
[2022-03-22] MEDS ORDERED: LORazepam 1 MG TAB PO PRN (13:59)
[2022-03-22] MEDS ORDERED: GABAPENTIN 600 MG TAB PO ONE (13:59)
[2022-03-22] MEDS ORDERED: POLYETHYLENE (MIRALAX) 17 GM PACK PO PRN (13:59)
[2022-03-22] MEDS ORDERED: ACETAMINOPHEN 325 MG TAB PO PRN (13:59)
[2022-03-22] MEDS ORDERED: ALUMINUM/MAGNESIUM SUSP 30 ML UDC PO PRN (13:59)
[2022-03-22] MEDS ORDERED: MULTI-VITAMIN INFUSION 10 ML, THIAMINE HCL 100 MG, FOLIC ACID 1 MG in SODIUM CHLORIDE 0... IV ONE (14:15)
--- NOTE | 2022-03-22 14:16 | Magnetic Resonance Report ---
MRI OF THE BRAIN WITHOUT AND WITH IV CONTRAST CLINICAL HISTORY: Abnormal head CT. Dizziness. Evaluate for metastatic disease. COMPARISON STUDY: Head CT performed earlier today. TECHNIQUE: Utilizing a 1.5 Amrita magnet and dedicated coil, multiplanar, multiecho imaging of the br ain was performed pre and postcontrast administration. IV administration of 6.5 mL of Gadavist contr ast was uneventful. Thin cut T1 post contrast imaging was performed. FINDINGS: Note is made of numerous small ring-enhancing supratentorial and infratentorial lesions. Th e largest is a 1.1 cm periventricular lesion adjacent to the occipital horn of the left lateral ventr icle shown on thin cut axial T1 sequence image 62 of 132. There is an adjacent 8 mm ring-enhancing le adriana. These lesions demonstrate restricted diffusion. Multiple additional intracranial lesions also d emonstrate restricted diffusion. Note is also made of a 9 mm posterior left temporal lobe lesion on i mage 47, a 6 mm posterior left frontal lobe lesion on image 110, a 5 mm lesion within the medial righ t cerebellar hemisphere on axial image 17 and multiple additional smaller lesions. These lesions have mild associated vasogenic edema. On sagittal T1-weighted sequence, there is apparent diminished elizabeth ow signal within portions of the upper cervical spine. This could be technical. IMPRESSION: 1. Numerous small ring-enhancing supratentorial and infratentorial lesions which measure up to 1.1 cm . Mild associated vasogenic edema without mass effect. These are consistent with metastases. 2. Apparent marrow replacement within portions of the upper cervical spine. This is probably technica l however skeletal lesions could appear similar. ACT 112: Negative or not required by law. Electronically signed by: Telly Reilly M.D. 03/22/2022 2:13 PM
[2022-03-22] MEDS: FOLIC ACID 1 MG TAB PO SCH (14:55)
[2022-03-22 14:56] LABS: Calcium 9.1 mg/dl (8.5-10.1); Est GFR (Non-African American) 114.8 ml/min; Potassium 4.4 mmol/L (3.5-5.1)
[2022-03-22] MEDS: NICOTINE 21 MG/24 HR TDSY TD SCH (14:56)
[2022-03-22 15:27] LABS: Amphetamines+Metham, Urine Neg (Neg); Barbiturates, Urine Neg (Neg); Benzodiazepine, Urine Neg (Neg); Cocaine, Urine Neg (Neg); MDMA (Ecstacy), Urine Neg (Neg); Methadone, Urine Neg (Neg); Opiate, Urine Neg (Neg); Phencyclidine, Urine Neg (Neg)
[2022-03-22] MEDS ORDERED: D5W AND NSS 1,000 ML IV SCH (17:00)
[2022-03-22] MEDS ORDERED: dexAMETHasone**PF** 10 MG/ML VIAL IV ONE (17:01)
[2022-03-22] MEDS ORDERED: dexAMETHasone 10 MG in SYRINGE 0 ML IV ONE (17:20)
[2022-03-22] MEDS: GABAPENTIN 600 MG TAB PO SCH (19:54)
[2022-03-22] MEDS: TROLAMINE SALICYLATE 10% CRM 255 APPLN/85 GM TUBE EXT SCH (19:54)
[2022-03-22] MEDS ORDERED: dexAMETHasone**PF** 10 MG/ML VIAL IV SCH (20:00)
[2022-03-22 20:28] LABS: Calcium 8.8 mg/dl (8.5-10.1); Creatinine Clr Calc Pharmacy 122.6 ml/min; Est GFR (African American) 125.6 ml/min; Est GFR (Non-African American) 108.4 ml/min
[2022-03-22] MEDS ORDERED: GLUCOSE 10 TABS/TUBE PO PRN (20:34)
[2022-03-22] MEDS ORDERED: CARBOHYDRATES FOR HYPOGLYCEMIA PO PRN (20:34)
[2022-03-22] MEDS ORDERED: DEXTROSE 50% 50 ML SYRINGE IV PRN (20:34)
[2022-03-22] MEDS ORDERED: GLUCAGON FOR INJ 1 MG VIAL SQ PRN (20:34)
[2022-03-22] MEDS ORDERED: GLUCOSE 40% GEL 15 GM TUBE PO PRN (20:34)
[2022-03-22] MEDS ORDERED: DEXTROSE 5% 500 ML IV SCH (21:15)
[2022-03-22] MEDS: INSULIN ASPART PER UNIT SC SCH (21:40)
[2022-03-22] MEDS: dexAMETHasone 4 MG in SYRINGE 0 ML IV SCH (21:53)
[2022-03-22] MEDS ORDERED: dexAMETHasone 10 MG in SYRINGE 0 ML IV SCH (23:00)
[2022-03-23 01:21] LABS: BUN Creatinine Ratio 12.5 (10-20); Calcium 8.9 mg/dl (8.5-10.1); Creatinine Clr Calc Pharmacy 132.2 ml/min; Est GFR (African American) 129.6 ml/min; Est GFR (Non-African American) 111.8 ml/min; Potassium 3.9 mmol/L (3.5-5.1)
[2022-03-23] MEDS: GABAPENTIN 600 MG TAB PO SCH ×3 (02:06→17:49)
[2022-03-23] MEDS: dexAMETHasone 4 MG in SYRINGE 0 ML IV SCH ×4 (05:59→21:50)
[2022-03-23 06:41] LABS: Creatinine Clr Calc Pharmacy 155.9 ml/min; Est GFR (Non-African American) 120.8 ml/min; Magnesium 2.2 mg/dl (1.7-2.4); Phosphorus 3.8 mg/dl (2.5-4.9); Potassium 4.1 mmol/L (3.5-5.1)
[2022-03-23 06:47] LABS: Hematocrit (blood only) 36.3 % (42-52); Hemoglobin 12.8 g/dL (14.0-18.0); Mean Corpuscular Hemoglobin 34.4 pg (25-34); Mean Corpuscular Hgb Conc 35.3 g/dL (32-36); Mean Corpuscular Volume 97.6 fL (80-100); Mean Platelet Volume 9.9 fL (7.4-10.4); Platelet Count 238 K/uL (130-400); RDW Coefficient of Variation 12.9 % (11.5-14.5); RDW Standard Deviation 46.3 fL (36.4-46.3); Red Blood Count 3.72 M/uL (4.7-6.1); White Blood Count 8.54 K/uL (4.8-10.8)
[2022-03-23] MEDS: INSULIN ASPART PER UNIT SC SCH ×4 (08:15→20:17)
[2022-03-23] MEDS: NICOTINE 21 MG/24 HR TDSY TD SCH (08:16)
[2022-03-23] MEDS: THIAMINE HCL 100 MG TAB PO SCH (08:19)
[2022-03-23] MEDS: FOLIC ACID 1 MG TAB PO SCH (08:19)
[2022-03-23] MEDS ORDERED: BENZOCAINE 20% (ORAJEL) 11.9 GM TUBE MT PRN (10:21)
--- NOTE | 2022-03-23 11:31 | Electrocardiogram Report ---
Test Reason : Blood Pressure : / mmHG Vent. Rate : 065 BPM Atrial Rate : 065 BPM P-R Int : 130 ms QRS Dur : 084 ms QT Int : 400 ms P-R-T Axes : 033 073 057 degrees QTc Int : 416 ms Normal sinus rhythm Nonspecific ST and T wave abnormality Abnormal ECG No previous ECGs available Confirmed by Murali Ken ([id number]) on 03/23/2022 11:31:33 AM Referred By: REFERRED SELF Confirmed By:Murali Ken
--- NOTE | 2022-03-23 11:34 | Pulmonary Consultation ---
Date of Consultation March 23, 2022 Assessment & Plan (1) Lung mass: Suspect metastatic lung cancer, possibly small cell given the hyponatremia. Parathyroid hormone related peptide sent. Please make the patient n.p.o. after midnight and hold anticoagulation the day of the procedure which should hopefully be tomorrow. Will sign out to my colleague who will be taking over on Thursday. Platelet count and INR acceptable. (2) Acute hyponatremia: Managed by the hospitalist team. Likely SIADH related. History of Present Illness Reason for Consultation: Abnormal CT chest Attending Physician: Alexsandra Adler MD History of Present Illness 51-year-old male with a past medical history of tobacco abuse presenting to the hospital due to nausea and vomiting. He also had diarrhea. He was found to have hyponatremia with a sodium of 121. Numerous lung masses were seen on CT chest. Also seen were metastatic lesions in his brain on MRI. Patient is currently on Decadron. Sodium level is improving. Patient notes that his nausea is improving. He denies any past history of cancer. No family history of cancer. He works at [employer]. He notes that he smokes 3 packs/day since the age of 14. Allergies Allergy/AdvReac Type Severity Reaction Status Date / Time Penicillins AdvReac Intermediate upset Unverified 03/22/22 11:12 stomach Home Medications Medication Instructions Recorded Confirmed Type No Known Home Medications 03/22/22 03/22/22 History Patient History Medical History Alcohol abuse Back contusion Marijuana use Tobacco use Surgical History (Updated 03/22/22 @ 12:20 by Allison Loomis DO) No history of previous surgery Family History (Updated 03/22/22 @ 12:04 by Allison Loomis DO) Father Cancer Mother Hypertension Brother Brain cancer Social History (Updated 03/22/22 @ 12:22 by Allison Loomis DO) Smoking Status: Current every day smoker Cigarettes Per Day: 60 (3 PPD); Do You Dip or Chew Tobacco: No; Hx Alcohol Use: Yes Alcohol type: beer Alcohol Intake Frequency: 4 or More x per/Week Alcohol Intake Frequency Comment: case per day Hx Substance Use: Yes Non-Prescribed Medications: Marijuana Substance Use Type Other:: MARIJUANA 3 MONTHS AGO Preferred Language: Chinese Communication Ability: Effective Mental Hygienist Required: No Beliefs That Will Affect Care: None Current Living Situation: Alone How many Children do You have Comment: has one daughter who is a nurse Feels Safe at Home: Yes Safety Concerns: Feels Safe At This Time 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 Eyes: Pupils are equal round and reactive to light. Conjunctivae are normal. Anicteric sclera. Ears nose, mouth and throat: Mallampati class 1. Normal posterior oropharynx. Uvula is midline. Neck: Trachea is midline. Visual inspection is normal. Respiratory: Clear to auscultation bilaterally. No use of accessory muscles. No significant clubbing noted. Cardiovascular: Regular rate and rhythm. No murmurs. No edema. Gastrointestinal: Normal bowel sounds, soft, nontender and nondistended. No hepatosplenomegaly noted. Musculoskeletal: No cyanosis. Patient is able to move all extremities. Strength is 5 out of 5 in the upper and lower extremities. Skin: No rashes, warm dry and intact. Neurologic: No obvious focal neurological deficits seen. Psychiatric: Alert and oriented x3 with a euthymic affect. Results & Data Results & Data ([facility]) Vital Signs (Past 12 Hours) Vital Signs Temp Pulse Resp BP Pulse Ox 03/23/22 07:42 36.7 C 79 19 107/70 94 03/23/22 03:26 36.9 C 54 L 17 123/77 97 PG Care Time/CCT Total # of Minutes Spent Total Time Spent with Patient: Total time spent is greater than 50% in coordination of care (as documented) at patient's floor/unit and/or counseling patient: Coding Level of Care Code 63204 Inpt Consult Level 4 Diagnoses Lung mass R91.8 Acute hyponatremia E87.1
[2022-03-23] MEDS ORDERED: traMADol HCL 50 MG TABLET PO SCH (12:00)
--- NOTE | 2022-03-23 12:03 | Electrocardiogram Report ---
Test Reason : Blood Pressure : / mmHG Vent. Rate : 068 BPM Atrial Rate : 068 BPM P-R Int : 124 ms QRS Dur : 082 ms QT Int : 408 ms P-R-T Axes : 009 046 -66 degrees QTc Int : 433 ms Normal sinus rhythm with sinus arrhythmia T wave abnormality, consider anterior ischemia Abnormal ECG When compared with ECG of 22-MAR-2022 08:28, (unconfirmed) Nonspecific T wave abnormality now evident in Inferior leads Confirmed by Murali Ken ([id number]) on 03/23/2022 12:03:05 PM Referred By: REFERRED SELF Confirmed By:Murali Ken
[2022-03-23] MEDS: LIDOCAINE 5% 1 PATCH TD SCH (12:34)
--- NOTE | 2022-03-23 12:34 | Hospitalist Progress Note ---
Date of Service March 23, 2022 Assessment & Plan (1) Vomiting: (2) Hyponatremia: (3) Lung mass: (4) UTI (urinary tract infection): (5) Blurry vision: (6) Smoker: (7) Alcohol abuse: (8) DVT prophylaxis: Plan: Lung mass Brain lesions -Concerning for lung cancer with brain metastasis -continue decadron -Pulm consulted to discuss biopsy options -Oncology and Rad/Onc consulted Lower back pain -exam most consistent with muscle pain, will place on scheduled tylenol 650mg TID, lidocaine patch to left flank, add oxycodone 5mg Q 6PRN for severe pain (initially tramadol was considered but with brain lesions, will avoid) Hyponatremia -improved -d/c further IVF UTI -Urine culture +GNR, continue ceftriaxone Current smoker -nicotint patch Alcohol abuse -gabapentin taper -AWSS protocol DVT ppx SCDs for now, no AC with brain lesions noted on MRI Admission and Anticipated Discharge Date Admission Date: March 22, 2022 Subjective Reports lower back pain left more than right Reports pleuritic chest pain Physical Exam Physical Exam: Appears older than stated age, chronically ill appearing, cachetic Respiratory: no wheezing, no accessory muscle use Cardiovascular: regular rate and rhythm, no murmurs/rubs Gastrointestinal (Abdomen): soft Musculoskeletal: no midline back tenderness along spine. Tender on bilateral lower paraspinal muscle area Neurologic: awake, alert, spontaneously moving extremities Results & Data Results & Data ([facility]) Vital Signs (Past 12 Hours) Vital Signs Temp Pulse Resp BP Pulse Ox 03/23/22 11:48 36.3 C L 71 17 144/89 H 98 03/23/22 07:42 36.7 C 79 19 107/70 94 03/23/22 03:26 36.9 C 54 L 17 123/77 97 Laboratory Results Short CBC 03/23/22 Range/Units 05:45 WBC 8.54 (4.8-10.8) K/uL Hgb 12.8 L (14.0-18.0) g/dL Hct 36.3 L (42-52) % Plt Count 238 (130-400) K/uL BMP 03/22/22 03/22/22 03/23/22 14:12 19:55 00:12 Sodium 125 L 133 L 132 L Potassium 4.4 4.0 3.9 Chloride 91 L 99 97 L Carbon Dioxide 25 29 29 BUN 6 9 8 Creatinine 0.60 0.69 0.64 Glucose 104 H 119 H 168 H Calcium 9.1 8.8 8.9 03/23/22 05:45 Sodium 132 L Potassium 4.1 Chloride 99 Carbon Dioxide 26 BUN 9 Creatinine 0.53 L Glucose 141 H Calcium 9.0 Medications Administered Current Inpatient Medications Acetaminophen (Acetaminophen 325 Mg Tab) 650 mg PO TID [facility] Stop: 03/27/22 13:59 Al Hydrox/Mg Hydrox/Simethicone (Aluminum/Magnesium Susp 30 Ml Udc) 15 ml PO Q4H PRN PRN Reason: Dyspepsia Stop: 04/21/22 13:58 Benzocaine (Benzocaine 20% (Orajel) 11.9 Gm Tube) 1 appln MT TID PRN PRN Reason: mouth pain Stop: 04/22/22 10:20 Last Admin: 03/23/22 10:54 Dose: 1 appln Documented by: Dextrose (Dextrose 50% 50 Ml Syringe) 25 - 50 ml IV UD PRN; Protocol PRN Reason: Hypoglycemia Protocol Stop: 04/21/22 20:33 Folic Acid (Folic Acid 1 Mg Tab) 1 mg PO QAM DAT Stop: 04/21/22 13:58 Last Admin: 03/23/22 08:19 Dose: 1 mg Documented by: Gabapentin (Gabapentin 600 Mg Tab) 600 mg PO Q8H [facility] Stop: 03/24/22 02:01 Last Admin: 03/23/22 10:36 Dose: 600 mg Documented by: Gabapentin (Gabapentin 600 Mg Tab) 600 mg PO Q12H [facility] Stop: 03/25/22 02:01 Gabapentin (Gabapentin 600 Mg Tab) 600 mg PO Q24H DAT Stop: 03/26/22 00:01 Glucagon (Glucagon For Inj 1 Mg Vial) 1 mg SQ UD PRN; Protocol PRN Reason: Hypoglycemia Protocol Stop: 04/21/22 20:33 Glucose (Glucose 10 Tabs/Tube) 4 - 8 tabs PO UD PRN; Protocol PRN Reason: Hypoglycemia Protocol Stop: 04/21/22 20:33 Glucose (Glucose 40% Gel 15 Gm Tube) 15 - 30 gm PO UD PRN; Protocol PRN Reason: Hypoglycemia Protocol Stop: 04/21/22 20:33 Dexamethasone 4 mg/ Syringe 1 mls @ 1 mls/min IV Q6H DAT Stop: 04/21/22 22:59 Last Admin: 03/23/22 10:54 Dose: 1 mls/min Documented by: Insulin Aspart (Insulin Aspart Per Unit) 0 units SC ACHS [facility] Stop: 04/21/22 20:59 Last Admin: 03/23/22 12:04 Dose: Not Given Documented by: Lidocaine (Lidocaine 5% 1 Patch) 1 patch TD QAM [facility] Stop: 04/22/22 11:44 Last Admin: 03/23/22 12:34 Dose: 1 patch Documented by: Lorazepam (Lorazepam 1 Mg Tab) 1 mg PO ONE PRN; Protocol PRN Reason: EtoH Withdrawal AWSS 6-10 Miscellaneous (Remove Nicoderm Patch) 1 ea N/A DAILY@0859 [facility] Stop: 04/22/22 08:58 Last Admin: 03/23/22 08:16 Dose: 1 ea Documented by: Miscellaneous (Carbohydrates For Hypoglycemia ) 15 - 30 gm PO UD PRN PRN Reason: Hypoglycemia Protocol Stop: 04/21/22 20:33 Miscellaneous (Remove Lidoderm Patch) 1 ea N/A DAILY@2100 [facility] Stop: 04/22/22 20:59 Nicotine (Nicotine 21 Mg/24 Hr Tdsy) 21 mg TD QAM [facility] Stop: 04/21/22 13:58 Last Admin: 03/23/22 08:16 Dose: 21 mg Documented by: Ondansetron HCl (Ondansetron Inj 2 Mg/Ml 2 Ml Vial) 4 mg IV Q6H PRN PRN Reason: Nausea Stop: 04/21/22 13:58 Polyethylene Glycol (Polyethylene (Miralax) 17 Gm Pack) 17 gm PO DAILY PRN PRN Reason: Constipation Stop: 04/21/22 13:58 Thiamine HCl (Thiamine Hcl 100 Mg Tab) 100 mg PO QAM [facility] Stop: 04/22/22 08:59 Last Admin: 03/23/22 08:19 Dose: 100 mg Documented by: Tramadol HCl (Tramadol Hcl 50 Mg Tablet) 50 mg PO Q6 [facility] Stop: 04/22/22 11:59 Last Admin: 03/23/22 12:34 Dose: 50 mg Documented by: Trolamine Salicylate (Trolamine Salicylate 10% Crm 255 Appln/85 Gm Tube) 1 appln EXT HS [facility] Stop: 04/21/22 20:59 Last Admin: 03/22/22 19:54 Dose: 1 appln Documented by:
[2022-03-23] MEDS: ACETAMINOPHEN 325 MG TAB PO SCH ×2 (13:36→19:45)
[2022-03-23] MEDS: oxyCODONE HCL IR 5 MG TAB (IMMEDIATE RELEASE) PO PRN ×2 (15:17→21:53)
[2022-03-23] MEDS: TROLAMINE SALICYLATE 10% CRM 255 APPLN/85 GM TUBE EXT SCH (19:46)
[2022-03-24] MEDS: GABAPENTIN 600 MG TAB PO SCH ×2 (01:40→14:08)
[2022-03-24] MEDS: dexAMETHasone 4 MG in SYRINGE 0 ML IV SCH (05:37)
[2022-03-24 06:48] LABS: Hematocrit (blood only) 34.3 % (42-52); Hemoglobin 11.9 g/dL (14.0-18.0); Mean Corpuscular Hemoglobin 34.4 pg (25-34); Mean Corpuscular Hgb Conc 34.7 g/dL (32-36); Mean Corpuscular Volume 99.1 fL (80-100); Mean Platelet Volume 10.2 fL (7.4-10.4); Platelet Count 252 K/uL (130-400); RDW Coefficient of Variation 12.9 % (11.5-14.5); RDW Standard Deviation 46.8 fL (36.4-46.3); Red Blood Count 3.46 M/uL (4.7-6.1); White Blood Count 16.18 K/uL (4.8-10.8)
[2022-03-24 07:00] LABS: Prothrombin Time 10.9 Seconds (9.0-12.0)
[2022-03-24 07:16] LABS: BUN Creatinine Ratio 21.2 (10-20); Calcium 9.2 mg/dl (8.5-10.1); Creatinine Clr Calc Pharmacy 158.9 ml/min; Est GFR (African American) 141.1 ml/min; Est GFR (Non-African American) 121.7 ml/min; Magnesium 2.1 mg/dl (1.7-2.4); Potassium 4.2 mmol/L (3.5-5.1)
[2022-03-24] MEDS: INSULIN ASPART PER UNIT SC SCH ×4 (07:49→20:31)
--- NOTE | 2022-03-24 08:07 | Radiation OncologyConsultation ---
Date of Consultation March 24, 2022 Assessment & Plan (1) Brain metastases: (2) Lung mass: Assessment: Mr. 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 Patient was symptomatic and admitted to the hospital and started on Decadron. The patient was seen by pulmonary medicine they did perform bronchoscopy with EBUS FNA today; the preliminary diagnosis is small cell lung cancer. The patient is now being seen to discuss radiation therapy for his brain metastasis. Recommendation: Whole brain radiation therapy. 10 fractions. Plan: 1. CT simulation today. 2. Continue patient on Dexamethasone. Plan to taper after completion of whole brain radiation therapy. 3. Follow-up diagnosis from biopsy. 4. Medical oncology consultation in the outpatient setting. 5. Completion of staging work-up including either CT of abdomen/pelvis and bone scan or PET/CT scan. 6. Patient and family encouraged to call us with any further questions or concerns. Rationale/Explanation of Treatment: I explained the indications, alternatives, benefits, risks and side effects of external beam radiation therapy. I explain the most common side effects including but not limited to skin erythema, skin break down, hair loss, radiation necrosis, fatigue, short-term memory loss, decreased neurocognitive performance, cerebral edema, hearing loss, damage to cochlea structures, seizures, loss of sensory and or motor function. I explained the treatment planning process and what to expect before during and after treatment. The patient understands and would be willing to consent to treatment. The patient had multiple questions which were answered to his full satisfaction. Thank you for allowing us to participate in the care of this patient. This chart was completed in part utilizing whoactually Speech Voice Recognition software. Attempts were made to minimize the grammatical errors, random word insertions, pronoun errors and incomplete sentences. Any formal questions or concerns about the content, text or information contained within the body of this dictation should be directly addressed to the provider for clarification. Mario Tolbert MD Department of Radiation Oncology [facility] History of Present Illness Attending Physician: Alexsandra Adler MD History of Present Illness 03/22/2022. Patient admitted to hospital due to multiple symptoms including blurry vision, nausea, hyponatremia. 03/22/2022. Chest x-ray. IMPRESSION: 1. 5.8 cm mass-like density which projects over the mid to lower left lung. This may be parenchymal or pleural-based. This is suspicious for a neoplastic process. A CT of the chest with contrast is recommended for further evaluation. 2. 2 cm nodular density which projects over the right hilum which can also be assessed on follow-up chest CT. 03/22/2022. CTA chest. IMPRESSION: 1. No pulmonary emboli identified. 2. 5.4 cm left lower lobe mass and 3 cm subpleural right lower lobe mass. Subcarinal and conglomerate right hilar lymphadenopathy. These findings are consistent with a neoplastic process. Differential considerations would include bronchogenic malignancy such as small cell. An abdominal primary given extensive hepatic metastatic disease is also within the differential. A CT of the abdomen and pelvis with IV contrast could be obtained for further evaluation. Pulmonary consultation is recommended. 03/22/2022. CT Head. IMPRESSION: 1. No acute intracranial hemorrhage or mass effect. 2. Two adjacent subependymal nodules along the occipital horn of left la teral ventricle. These are nonspecific. Although not typical for metastatic disease, this possibility cannot be completely excluded given the pulmonary and hepatic lesions. 03/22/2022. MRI Brain. IMPRESSION: 1. Numerous small ring-enhancing supratentorial and infratentorial lesions which measure up to 1.1 cm. Mild associated vasogenic edema without mass effect. These are consistent with metastases. 2. Apparent marrow replacement within portions of the upper cervical spine. This is probably technical however skeletal lesions could appear similar. 03/23/2022. Pulmonary consultation by Dr. Linn. Recommendation is for bronchoscopy with EBUS to establish diagnosis. 03/24/2022. Bronchoscopy with EBUS FNA by Dr. Donohue. Official results are not back. Preliminary diagnosis is for small cell lung carcinoma. Allergies Allergy/AdvReac Type Severity Reaction Status Date / Time Penicillins AdvReac Intermediate upset Unverified 03/22/22 11:12 stomach Home Medications Medication Instructions Recorded Confirmed Type No Known Home Medications 03/22/22 03/22/22 History Patient History Medical History Alcohol abuse Back contusion Brain metastases Marijuana use Tobacco use Surgical History (Updated 03/22/22 @ 12:20 by Allison Loomis DO) No history of previous surgery Family History (Updated 03/22/22 @ 12:04 by Allison Loomis DO) Father Cancer Mother Hypertension Brother Brain cancer Social History (Updated 03/22/22 @ 12:22 by Allison Loomis DO) Smoking Status: Current every day smoker Cigarettes Per Day: 60 (3 PPD); Do You Dip or Chew Tobacco: No; Hx Alcohol Use: Yes Alcohol type: beer Alcohol Intake Frequency: 4 or More x per/Week Alcohol Intake Frequency Comment: case per day Hx Substance Use: No Preferred Language: Icelandic Communication Ability: Effective Certified [employer] Required: No Beliefs That Will Affect Care: None Current Living Situation: Alone How many Children do You have Comment: has one daughter who is a nurse Feels Safe at Home: Yes Safety Concerns: Feels Safe At This Time 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 [employer] Assistive Devices: None Physical Exam Constitutional: WD/WN, vitals as above well developed and well nourished Eyes: PERRL, conjunctivae normal, anicteric sclerae ENMT: external ear and nose normal, oropharynx normal Neck: trachea midline, no thyromegaly Respiratory: normal respiratory effort, lungs clear to auscultation Cardiovascular: RRR, no murmur, no edema Gastrointestinal (Abdomen): normal bowel sounds, soft, nontender, no hepatosplenomegaly Musculoskeletal: no cyanosis or clubbing, extremities motor strength 5/5 Skin: no rashes, warm and dry Neurologic: patellar DTR's 2+ bilat, sensation intact and PERRL, EOMI, accommodation nl, no face palsy, no dysarthria Psychiatric: A+Ox3, euthymic affect
[2022-03-24] MEDS ORDERED: MIDAZOLAM HCL 5 MG/ML 1 ML VIAL ONE (08:12)
[2022-03-24] MEDS ORDERED: fentaNYL citrate 100 MCG/2 ML VIAL ONE (08:13)
--- NOTE | 2022-03-24 08:30 | Pre Anesthesia Assessment ---
Date of Service March 24, 2022 Pre Sedation Assessment Vital Signs Temp Pulse Resp BP Pulse Ox 03/24/22 08:08 36.8 C 69 16 136/67 97 03/24/22 03:51 36.8 C 56 L 18 134/77 98 03/23/22 21:53 36.9 C 64 16 138/83 98 03/23/22 19:08 36.7 C 63 16 129/77 96 03/23/22 15:41 36.4 C L 68 17 131/78 94 03/23/22 11:48 36.3 C L 71 17 144/89 H 98 Pre-Sedation Airway Assessment Smoking Status: Current every day smoker Hx Sleep Apnea: No Short, Thick Neck: No Thyromental Distance: > or= 3.5 Finger Breadths Oral Cavity: + Dental Abnormalities Mallampati Class: II ASA: ASA3 NPO Status Date of Last Intake of Fluids: 03/23/22 Time of Last Intake of Fluids: 22:30 Last Oral Intake of Fluids Comment: had medication with sip at 0200 today Date of Last Intake of Solid Food: 03/23/22 Time of Last Intake of Solid Foods: 22:30 Notes The planned sedation has been discussed with the patient. Informed Consent was obtained. I have identified the patient, determined the appropriateness of sedation and have assessed the patient immediately prior to the procedure. All medicine(s) and interventions are by my order.
--- NOTE | 2022-03-24 08:30 | History & Physical Bridge Note ---
Date of Service March 24, 2022 History & Physical Bridge Note I have examined the patient, reviewed the History & Physical and in the interval since the performance of the History & Physical I have noted the following changes of clinical significance: no changes noted
--- NOTE | 2022-03-24 09:15 | Post Anesthesia Assessment ---
Date of Service March 24, 2022 Post Sedation Assessment Vital Signs Temp Pulse Pulse Resp BP Pulse Ox 03/24/22 09:01 36.6 C 65 62 18 115/72 96 03/24/22 08:56 65 14 124/91 99 03/24/22 08:54 65 14 141/91 H 99 03/24/22 08:49 66 14 130/83 99 03/24/22 08:44 61 18 131/76 99 03/24/22 08:39 82 18 145/100 H 99 03/24/22 08:34 53 L 18 116/77 99 03/24/22 08:29 66 18 129/78 97 03/24/22 08:25 56 L 18 133/69 97 03/24/22 08:08 36.8 C 69 16 136/67 97 03/24/22 08:00 49 L 03/24/22 03:51 36.8 C 56 L 18 134/77 98 03/23/22 21:53 36.9 C 64 16 138/83 98 03/23/22 19:08 36.7 C 63 16 129/77 96 03/23/22 15:41 36.4 C L 68 17 131/78 94 03/23/22 11:48 36.3 C L 71 17 144/89 H 98 Recovery Score Activity: Moves 4 extremities Respiration: Deep Breath/Cough Circulation: +/-20% PreAnes Value Consciousness: Arouseable (by name) Oxygen Saturation: O2 needed for >90% Post Anesthesia Score: 8 Discharge Sedation Level of Care: Fast Track Phase II Post Sedation Plan On clinical assessment, the patient appears to have tolerated the sedation without complications. Patient is recovering as anticipated. Patient will continue to be monitored by nursing and may be discharged when sedation discharge criteria are met per below protocol. Upon Completions of procedure up to 15 minutes continue every 5 minute vital signs and the P.A.R. score; then discharge to a Phase I or Fast Track to Phase II per the following guidelines: * Discharge Patient to appropriate Phase II area if PAR is 8 or greater or return to pre- procedure baseline. The post - procedure orders will be as directed. * If PAR score is less than 8 or not return to pre-procedure baseline then patient will follow Phase I monitoring till PAR is reached for Phase II. The Phase I may be done in procedure room or may call to secure a Phase I area. * If naloxone or flumazenil are used for reversal, hold in Phase I for continued monitoring from when last reversal dose was given for a minimum of 60 minutes or longer pending the nurse and/or physician discretion of patient condition before discharge to Phase II. Please call the Sedation Physician to re-evaluate and complete post-note for discharge to Phase II area. Do NOT discharge from procedure sedation or Phase 1 until post- sedation evaluation note is complete by procedure /sedation MD Sedation Discharge Instructions to be given to the patient at discharge to home.
--- NOTE | 2022-03-24 09:20 | Procedure Note ---
Procedure Note Date of Service March 24, 2022 Note Procedure: Fiberoptic bronchoscopy Endobronchial ultrasound evaluation during bronchoscopy Endobronchial ultrasound with transbronchial needle aspiration of lymph nodes Conscious sedation Provider: Casey Donohue MD Consent: Signed by patient and timeout verified prior to procedure. Sedation start: 829 Sedation end: 901 Conscious sedation: 7 mg Versed, 175 mcg fentanyl, topical lidocaine per RT protocol Indication: Abnormal CT scan Procedure: Patient was brought to the bronchoscopy suite. Consent was verified. Appropriate radiographic studies had been reviewed prior to the procedure. Standard monitoring was applied. Oxygen was administered. After topical anesthesia of the airways per respiratory therapy protocol, the fiberoptic scope was advanced through the oropharynx via the bite-block. Oropharynx was unremarkable. Vocal cords were visualized and were normal in function and appearance. Topical anesthesia of the cords was achieved with instillation of lidocaine through the scope. Scope was then passed through the vocal cords. The trachea was tortuous. Main keith was splayed. Anesthesia of the lower airways was achieved with instillation of lidocaine through the scope. A sequential and systematic examination of the lower airways was conducted. The right-sided airways were normal in anatomic configuration. The right mainstem bronchus was normal. There was mass obstruction of the right upper lobe takeoff with friable mucosa. This extended down into the bronchus intermedius. The superior segment on the right appeared extrinsically compressed. The right middle lobe and other lower lobe bronchi were patent. Left-sided airways were normal in anatomic configuration and the mucosa appeared normal. Once the inspection bronchoscopy was complete, the bronchoscope was removed from the airways and the endobronchial ultrasound advanced through the vocal cords via the bite-block. Systematic inspection of mediastinal lymph node stations was conducted including 2R, 2L, 4R, and 4L. No significant adenopathy was identified in the stations. There was bulky adenopathy present in the level 7 lymph node station. Under direct ultrasound visualization and using a 21-gauge needle, 8 passes were taken. Rapid onsite cytologic evaluation confirmed adequacy of the specimen. Minimal bleeding was encountered and hemostasis was confirmed at conclusion of the procedure. The bronchoscope was then removed from the airways. The patient tolerated the procedure well without obvious complication. Patient was returned to the recovery room. Impression: 1. Abnormal mucosa extending from the right upper lobe takeoff down through the bronchus intermedius with partial occlusion of the right upper lobe and superior segment of the right lower lobe. 2. Mediastinal adenopathy within the level 7 lymph node station status post transbronchial needle aspiration. Await cytology. Coding CPT Codes Sedation/Anesthesia - Sedation/Anesthesia: 42618 Mod Sedation by the same physician;Init15 Min Child Age 5 & Up ([id number]) Sedation/Anesthesia - Sedation/Anesthesia: 43999 Mod Sedation by the same physician; Ea [id number] Minutes ([id number]) Pulmonary/Thoracic - Pulmonary and Thoracic: 70458 Bronchoscopy, w/EBUS 1 or 2 mediastinal ([id number]) [facility] [place] (Charges) Pulmonary/Thoracic Procedure 1: Pulmonary and Thoracic: 88192 Bronchoscopy, w/EBUS 1 or 2 mediastinal Sedation/Anesthesia Procedure 2: Sedation/Anesthesia: 82450 Mod Sedation by the same physician;Init15 Min Child Age 5 & Up Total Sedation Time (minutes): 0 Procedure 3: Sedation/Anesthesia: 78990 Mod Sedation by the same physician; Ea [id number] Minutes
--- NOTE | 2022-03-24 09:25 | Pulmonology Progress Note ---
Date of Service March 24, 2022 Assessment & Plan (1) Lung mass: (2) Mediastinal adenopathy: (3) Brain metastases: Plan: Impression: 51-year-old male smoker with mediastinal adenopathy, bilateral lung masses and brain metastases highly concerning for potential advanced lung cancer. Patient underwent bronchoscopy with endobronchial ultrasound and transbronchial needle aspiration this morning. Recommendations: 1. Abnormal CT scan: Await final pathology. Radiation oncology and medical oncology consults have been ordered. Discussed with radiation oncology. Preliminary suggestive of possible small cell and would favor rapid radiation oncology and medical oncology evaluations. Final path should be available within the next 24 to 36hours. 2. History of tobacco abuse: Outpatient PFTs may be considered. Patient is not bronchospastic or having any respiratory issues currently so would hold off on any additional intervention currently. Smoking cessation recommended. 3. Brain metastases: Management per primary service and radiation oncology. Admission and Anticipated Discharge Date Admission Date: March 22, 2022 Subjective Patient seen and examined. EMR reviewed. Discussed with patient as well as off going network manager. Patient seen and examined prior to bronchoscopy. He is awake alert and conversant. He is not having any respiratory issues. He does feel anxious. His altered sensorium has cleared. Review of Systems Review of Systems: All systems reviewed & are unremarkable except as noted in Subjective Physical Exam Constitutional: WD/WN, vitals as above Neck: trachea midline, no thyromegaly Respiratory: normal respiratory effort, lungs clear to auscultation Cardiovascular: RRR, no murmur, no edema Gastrointestinal (Abdomen): normal bowel sounds, soft, nontender, no hepatosplenomegaly Musculoskeletal: Extremities: extremities normal to inspection Skin: no rashes, warm and dry Neurologic: Nonfocal exam Lymphatic: no cervical lymphadenopathy Results & Data Results & Data ([facility]) Vital Signs (Past 12 Hours) Vital Signs Temp Pulse Pulse Resp BP Pulse Ox 03/24/22 09:16 36.6 C 60 16 124/75 96 03/24/22 09:01 36.6 C 65 62 18 115/72 96 03/24/22 08:56 65 14 124/91 99 03/24/22 08:54 65 14 141/91 H 99 03/24/22 08:49 66 14 130/83 99 03/24/22 08:44 61 18 131/76 99 03/24/22 08:39 82 18 145/100 H 99 04/25/22 08:34 53 L 18 116/77 99 03/24/22 08:29 66 18 129/78 97 03/24/22 08:25 56 L 18 133/69 97 03/24/22 08:08 36.8 C 69 16 136/67 97 03/24/22 08:00 49 L 03/24/22 03:51 36.8 C 56 L 18 134/77 98 03/23/22 21:53 36.9 C 64 16 138/83 98 Critical Care Results & Data Vital Signs (Past 12 Hours) Vital Signs Temp Pulse Pulse Resp BP Pulse Ox 03/24/22 09:16 36.6 C 60 16 124/75 96 03/24/22 09:01 36.6 C 65 62 18 115/72 96 03/24/22 08:56 65 14 124/91 99 03/24/22 08:54 65 14 141/91 H 99 03/24/22 08:49 66 14 130/83 99 03/24/22 08:44 61 18 131/76 99 03/24/22 08:39 82 18 145/100 H 99 03/24/22 08:34 53 L 18 116/77 99 03/24/22 08:29 66 18 129/78 97 03/24/22 08:25 56 L 18 133/69 97 03/24/22 08:08 36.8 C 69 16 136/67 97 03/24/22 08:00 49 L 03/24/22 03:51 36.8 C 56 L 18 134/77 98 03/23/22 21:53 36.9 C 64 16 138/83 98 Lab & Micro Results (Past 24 Hours) RBC 3.46 M/uL (4.7-6.1) L 03/24/22 WBC 16.18 K/uL (4.8-10.8) H 03/24/22 Hgb 11.9 g/dL (14.0-18.0) L 03/24/22 Hct 34.3 % (42-52) L 03/24/22 MCV 99.1 fL (80-100) 03/24/22 MCH 34.4 pg (25-34) H 03/24/22 MCHC 34.7 g/dL (32-36) 03/24/22 RDW Standard Deviation 46.8 fL (36.4-46.3) H 03/24/22 RDW Coefficient of Variation 12.9 % (11.5-14.5) 03/24/22 Plt Count 252 K/uL (130-400) 03/24/22 MPV 10.2 fL (7.4-10.4) 03/24/22 Na 133 mmol/L (136-145) L 03/24/22 K 4.2 mmol/L (3.5-5.1) 03/24/22 Cl 99 mmol/L (98-107) 03/24/22 CO2 28 mmol/L (21-32) 03/24/22 Anion Gap 6 (3-11) 03/24/22 BUN 11 mg/dl (6-23) 03/24/22 Creatinine 0.52 mg/dl (0.6-1.4) L 03/24/22 Estimated GFR ( Amer) 141.1 ml/min 03/24/22 Estimated GFR (Non-Af Amer) 121.7 ml/min 03/24/22 BUN/Creatinine Ratio 21.2 (10-20) H 03/24/22 Glu 120 mg/dl (70-99(Fasting)) H 03/24/22 Ca 9.2 mg/dl (8.5-10.1) 03/24/22 Mg 2.1 mg/dl (1.7-2.4) 03/24/22 05:52 03/24/22 Calcium Level 9.2 mg/dl (8.5-10.1) 03/24/22 05:52 03/24/22 Prothromb Time International Ratio 1.0 (0.9-1.1) 03/24/22 05:52 03/24/22 Microbiology 03/22/22 08:50 Urine Culture - Preliminary Urine,Clean Catch Klebsiella (Entero) aerogenes 03/22/22 11:22 Aerobic Blood Culture - Preliminary Blood No growth in Aerobic bottle after 24 hours. Anaerobic Blood Culture - Preliminary No growth in Anaerobic bottle after 24 hours. 03/22/22 08:30 Aerobic Blood Culture - Preliminary Blood No growth in Aerobic bottle after 24 hours. Anaerobic Blood Culture - Preliminary No growth in Anaerobic bottle after 24 hours. I & O Totals 24 Hours 03/23/22 03/24/22 03/25/22 06:59 06:59 06:59 Intake Total 3425.867 / 3425.867 300 / 300 Balance 3425.867 / 3425.867 300 / 300 Cumulative 03/22/22 08:07 thru 03/23/22 22:00 Intake Total 3725.867 Balance 3725.867 RT Ventilator Mngmt (Last Documented) Ventilator Ordered Settings Respiratory Rate 16 03/24/22 09:16 Ventilator - PT Measurements Respiratory Rate 16 PG Care Time/CCT Total # of Minutes Spent Total Time Spent with Patient: Total time spent is greater than 50% in coordination of care (as documented) at patient's floor/unit and/or counseling patient: Coding Level of Care Code 14707 Subseq Hosp Care Lvl 3 Diagnoses Lung mass R91.8 Mediastinal adenopathy R59.0 Brain metastases C79.31
[2022-03-24] MEDS: NICOTINE 21 MG/24 HR TDSY TD SCH (11:29)
[2022-03-24] MEDS: ACETAMINOPHEN 325 MG TAB PO SCH ×3 (11:30→20:32)
[2022-03-24] MEDS: FOLIC ACID 1 MG TAB PO SCH (11:30)
[2022-03-24] MEDS: LIDOCAINE 5% 1 PATCH TD SCH (11:31)
[2022-03-24] MEDS: THIAMINE HCL 100 MG TAB PO SCH (11:32)
[2022-03-24] MEDS: oxyCODONE HCL IR 5 MG TAB (IMMEDIATE RELEASE) PO PRN ×2 (11:46→17:45)
[2022-03-24] MEDS: cefTRIAXone SODIUM 1,000 MG/50 ML BAG IV SCH (11:47)
[2022-03-24] MEDS: dexAMETHasone 4 MG TAB PO SCH ×2 (14:52→20:31)
--- NOTE | 2022-03-24 14:58 | Hospitalist Progress Note ---
Date of Service March 24, 2022 Assessment & Plan (1) Vomiting: (2) Hyponatremia: (3) Lung mass: (4) UTI (urinary tract infection): (5) Blurry vision: (6) Smoker: (7) Alcohol abuse: (8) DVT prophylaxis: Plan: Lung mass Brain lesions -Concerning for lung cancer with brain metastasis -continue decadron -Pulm consulted, patient had bronchoscopy today with biopsies -Rad/onc consulted, plan for radiation later today -Oncology consult pending Lower back pain -exam most consistent with muscle pain, continue scheduled tylenol 650mg TID, lidocaine patch to left flank, oxycodone 5mg Q 6PRN for severe pain (initially tramadol was considered but with brain lesions, will avoid) Hyponatremia -improved -encourage Carb controlled diet, 2L fluid restriction UTI -Urine culture +klebsiella, continue ceftriaxone Current smoker -nicotint patch Alcohol abuse -gabapentin taper -AWSS protocol DVT ppx SCDs for now, no AC with brain lesions noted on MRI Admission and Anticipated Discharge Date Admission Date: March 22, 2022 Subjective went for bronchoscopy today Patient with no complaints currently waiting for radiation later today Physical Exam Physical Exam: appears older than stated age, thin, non toxic Respiratory: breathing comfortably on room air, no wheezing/rhonchi/rale Cardiovascular: regular rate and rhythm, no murmurs/rubs/gallops Gastrointestinal (Abdomen): soft, non tender, non distended Musculoskeletal: no edema Neurologic: awake, alert Results & Data Results & Data ([facility]) Vital Signs (Past 12 Hours) Vital Signs Temp Pulse Pulse Resp BP Pulse Ox 03/24/22 11:30 36.9 C 60 18 135/61 98 03/24/22 09:45 36.9 C 57 L 16 117/73 94 03/24/22 09:31 36.6 C 60 16 103/70 93 03/24/22 09:16 36.6 C 60 16 124/75 96 03/24/22 09:01 36.6 C 65 62 18 115/72 96 03/24/22 08:56 65 14 124/91 99 03/24/22 08:54 65 14 141/91 H 99 03/24/22 08:49 66 14 130/83 99 03/24/22 08:44 61 18 131/76 99 03/24/22 08:39 82 18 145/100 H 99 03/24/22 08:34 53 L 18 116/77 99 03/24/22 08:29 66 18 129/78 97 03/24/22 08:25 56 L 18 133/69 97 03/24/22 08:08 36.8 C 69 16 136/67 97 03/24/22 08:00 49 L 03/24/22 03:51 36.8 C 56 L 18 134/77 98 Laboratory Results Short CBC 03/24/22 Range/Units 05:52 WBC 16.18 H (4.8-10.8) K/uL Hgb 11.9 L (14.0-18.0) g/dL Hct 34.3 L (42-52) % Plt Count 252 (130-400) K/uL BMP 03/24/22 05:52 Sodium 133 L Potassium 4.2 Chloride 99 Carbon Dioxide 28 BUN 11 Creatinine 0.52 L Glucose 120 H Calcium 9.2 Medications Administered Current Inpatient Medications Acetaminophen (Acetaminophen 325 Mg Tab) 650 mg PO TID [facility] Stop: 03/27/22 13:59 Last Admin: 03/24/22 11:30 Dose: 650 mg Documented by: Al Hydrox/Mg Hydrox/Simethicone (Aluminum/Magnesium Susp 30 Ml Udc) 15 ml PO Q4H PRN PRN Reason: Dyspepsia Stop: 04/21/22 13:58 Benzocaine (Benzocaine 20% (Orajel) 11.9 Gm Tube) 1 appln MT TID PRN PRN Reason: mouth pain Stop: 04/22/22 10:20 Last Admin: 03/23/22 10:54 Dose: 1 appln Documented by: Dexamethasone (Dexamethasone 4 Mg Tab) 4 mg PO TID [facility] Stop: 04/23/22 13:59 Last Admin: 03/24/22 14:52 Dose: 4 mg Documented by: Dextrose (Dextrose 50% 50 Ml Syringe) 25 - 50 ml IV UD PRN; Protocol PRN Reason: Hypoglycemia Protocol Stop: 04/21/22 20:33 Folic Acid (Folic Acid 1 Mg Tab) 1 mg PO QAM [facility] Stop: 04/21/22 13:58 Last Admin: 03/24/22 11:30 Dose: 1 mg Documented by: Gabapentin (Gabapentin 600 Mg Tab) 600 mg PO Q12H [facility] Stop: 03/25/22 02:01 Last Admin: 03/24/22 14:08 Dose: 600 mg Documented by: Gabapentin (Gabapentin 600 Mg Tab) 600 mg PO Q24H [facility] Stop: 03/26/22 00:01 Glucagon (Glucagon For Inj 1 Mg Vial) 1 mg SQ UD PRN; Protocol PRN Reason: Hypoglycemia Protocol Stop: 04/21/22 20:33 Glucose (Glucose 10 Tabs/Tube) 4 - 8 tabs PO UD PRN; Protocol PRN Reason: Hypoglycemia Protocol Stop: 04/21/22 20:33 Glucose (Glucose 40% Gel 15 Gm Tube) 15 - 30 gm PO UD PRN; Protocol PRN Reason: Hypoglycemia Protocol Stop: 04/21/22 20:33 Ceftriaxone Sodium (Rocephin) 1,000 mg in 50 mls @ 100 mls/hr IV Q24H [facility] Stop: 04/03/22 10:59 Last Infusion: 03/24/22 12:35 Dose: Infused Documented by: Insulin Aspart (Insulin Aspart Per Unit) 0 units SC ACHS [facility] Stop: 04/21/22 20:59 Last Admin: 03/24/22 12:07 Dose: Not Given Documented by: Lidocaine (Lidocaine 5% 1 Patch) 1 patch TD QAM [facility] Stop: 04/22/22 11:44 Last Admin: 03/24/22 11:31 Dose: 1 patch Documented by: Lorazepam (Lorazepam 1 Mg Tab) 1 mg PO ONE PRN; Protocol PRN Reason: EtoH Withdrawal AWSS 6-10 Miscellaneous (Remove Nicoderm Patch) 1 ea N/A DAILY@0859 [facility] Stop: 04/22/22 08:58 Last Admin: 03/24/22 11:30 Dose: 1 ea Documented by: Miscellaneous (Carbohydrates For Hypoglycemia ) 15 - 30 gm PO UD PRN PRN Reason: Hypoglycemia Protocol Stop: 04/21/22 20:33 Miscellaneous (Remove Lidoderm Patch) 1 ea N/A DAILY@2100 [facility] Stop: 04/22/22 20:59 Last Admin: 03/23/22 19:46 Dose: 1 ea Documented by: Nicotine (Nicotine 21 Mg/24 Hr Tdsy) 21 mg TD QAM [facility] Stop: 04/21/22 13:58 Last Admin: 03/24/22 11:29 Dose: 21 mg Documented by: Ondansetron HCl (Ondansetron Inj 2 Mg/Ml 2 Ml Vial) 4 mg IV Q6H PRN PRN Reason: Nausea Stop: 04/21/22 13:58 Oxycodone HCl (Oxycodone Hcl Ir 5 Mg Tab (Immediate Release)) 5 mg PO Q6 PRN PRN Reason: Pain Stop: 04/06/22 12:49 Last Admin: 03/24/22 11:46 Dose: 5 mg Documented by: Polyethylene Glycol (Polyethylene (Miralax) 17 Gm Pack) 17 gm PO DAILY PRN PRN Reason: Constipation Stop: 04/21/22 13:58 Thiamine HCl (Thiamine Hcl 100 Mg Tab) [facility] Stop: 04/22/22 08:59 Last Admin: 03/24/22 11:32 Dose: 100 mg Documented by: Trolamine Salicylate (Trolamine Salicylate 10% Crm 255 Appln/85 Gm Tube) 1 appln EXT HS [facility] Stop: 04/21/22 20:59 Last Admin: 03/23/22 19:46 Dose: 1 appln Documented by:
--- NOTE | 2022-03-24 15:34 | Electrocardiogram Report ---
Test Reason : Blood Pressure : / mmHG Vent. Rate : 048 BPM Atrial Rate : 048 BPM P-R Int : 142 ms QRS Dur : 088 ms QT Int : 482 ms P-R-T Axes : 059 060 030 degrees QTc Int : 430 ms Sinus bradycardia Nonspecific T wave abnormality Abnormal ECG When compared with ECG of 23-MAR-2022 06:05, Nonspecific T wave abnormality, improved in Inferior leads Nonspecific T wave abnormality has replaced inverted T waves in Anterior leads Confirmed by Murali Ken ([id number]) on 03/24/2022 3:34:07 PM Referred By: REFERRED SELF Confirmed By:Murali Ken
[2022-03-24] MEDS: TROLAMINE SALICYLATE 10% CRM 255 APPLN/85 GM TUBE EXT SCH (20:31)
[2022-03-24] MEDS ORDERED: oxyCODONE HCL IR 5 MG TAB (IMMEDIATE RELEASE) PO STA (23:22)
[2022-03-25] MEDS: GABAPENTIN 600 MG TAB PO SCH (02:57)
[2022-03-25] MEDS ORDERED: MoRPHine SULFATE 2 MG/ML CARP IV STA (03:25)
[2022-03-25 06:32] LABS: Hematocrit (blood only) 37.3 % (42-52); Hemoglobin 12.7 g/dL (14.0-18.0); Mean Corpuscular Hemoglobin 33.8 pg (25-34); Mean Corpuscular Volume 99.2 fL (80-100); Platelet Count 278 K/uL (130-400); RDW Coefficient of Variation 12.8 % (11.5-14.5); RDW Standard Deviation 46.8 fL (36.4-46.3); Red Blood Count 3.76 M/uL (4.7-6.1); White Blood Count 14.75 K/uL (4.8-10.8)
--- NOTE | 2022-03-25 06:32 | Ultrasound Report ---
BILATERAL LOWER EXTREMITY VENOUS DOPPLER CLINICAL HISTORY: Bilateral lower extremity pain. COMPARISON STUDY: No previous studies for comparison. TECHNIQUE: Sonography of the deep venous system of the bilateral lower extremities was performed. Co mpression and augmentation were evaluated. FINDINGS: The bilateral common femoral, superficial femoral and popliteal veins were compressible. A ugmentation was normal. Flow was shown within the deep calf vessels. IMPRESSION: No evidence of deep venous thrombus within the bilateral lower extremities. ACT 112: Negative or not required by law. Electronically signed by: Telly Reilly M.D. 03/25/2022 6:30 AM
[2022-03-25 06:56] LABS: Est GFR (Non-African American) 114.8 ml/min; Potassium 4.2 mmol/L (3.5-5.1)
[2022-03-25] MEDS: ACETAMINOPHEN 325 MG TAB PO SCH ×3 (07:37→20:48)
[2022-03-25] MEDS: THIAMINE HCL 100 MG TAB PO SCH (07:39)
[2022-03-25] MEDS: FOLIC ACID 1 MG TAB PO SCH (07:39)
[2022-03-25] MEDS: NICOTINE 21 MG/24 HR TDSY TD SCH (07:40)
[2022-03-25] MEDS: dexAMETHasone 4 MG TAB PO SCH ×3 (07:40→20:48)
[2022-03-25] MEDS: LIDOCAINE 5% 1 PATCH TD SCH (07:40)
[2022-03-25] MEDS: INSULIN ASPART PER UNIT SC SCH ×4 (07:53→20:44)
--- NOTE | 2022-03-25 08:27 | Pulmonology Progress Note ---
Date of Service March 25, 2022 Assessment & Plan (1) Lung mass: (2) Mediastinal adenopathy: (3) Brain metastases: Plan: Impression: 51-year-old male smoker with mediastinal adenopathy, bilateral lung masses and brain metastases highly concerning for potential advanced lung cancer. Status post bronchoscopy yesterday with endobronchial ultrasound and transbronchial needle aspiration of level 7 lymph node. Preliminary demonstrated malignant cells, await final path but suspicious for potential small cell etiology Recommendations: 1. Abnormal CT scan: Await final pathology. Radiation oncology and medical oncology consults. 2. History of tobacco abuse: Outpatient PFTs may be considered. Patient is not bronchospastic or having any respiratory issues currently so would hold off on any additional intervention currently. Smoking cessation recommended. 3. Brain metastases: Management per primary service and radiation oncology. Will sign off at this point in time. Feel free to contact us if we can be of additional assistance or if the patient should develop additional or progressive respiratory issues. Admission and Anticipated Discharge Date Admission Date: March 22, 2022 Subjective Patient seen and examined. Overnight he complains of some leg cramping and pain. He completed bronchoscopy and has had no adverse events. He is back to room air. He is not coughing or expectorating phlegm and has not had any hemoptysis. He was seen by radiation oncology. Medical oncology evaluation pending. Review of Systems Review of Systems: All systems reviewed & are unremarkable except as noted in Subjective Physical Exam Constitutional: WD/WN, vitals as above ENMT: Mallampati Class: II Neck: trachea midline, no thyromegaly Respiratory: normal respiratory effort, lungs clear to auscultation Cardiovascular: RRR, no murmur, no edema Gastrointestinal (Abdomen): normal bowel sounds, soft, nontender, no hepatosplenomegaly Musculoskeletal: Extremities: extremities normal to inspection Skin: no rashes, warm and dry Lymphatic: no cervical lymphadenopathy Results & Data Results & Data ([facility]) Vital Signs (Past 12 Hours) Vital Signs Temp Pulse Pulse Pulse Resp BP Pulse Ox 03/25/22 07:21 36.9 C 53 L 19 179/89 H 99 03/25/22 04:05 175/88 H 03/25/22 03:01 37 C 48 L 18 172/91 H 99 03/24/22 23:02 36.9 C 47 L 18 169/91 H 98 03/24/22 22:18 60 Laboratory Results 03/25/22 05:45 03/25/22 05:45 Bronchoscopy TBNA pending. Diagnostic Findings No new imaging PG Care Time/CCT Total # of Minutes Spent Total Time Spent with Patient: Total time spent is greater than 50% in coordination of care (as documented) at patient's floor/unit and/or counseling patient: Coding Level of Care Code 83975 Subseq Hosp Care Lvl 2 Diagnoses Lung mass R91.8 Mediastinal adenopathy R59.0 Brain metastases C79.31
[2022-03-25] MEDS ORDERED: OPTIRAY 320 100ml IV ONE (08:41)
[2022-03-25] MEDS: PANTOprazole 40 MG TAB PO SCH (09:28)
[2022-03-25] MEDS: oxyCODONE HCL IR 5 MG TAB (IMMEDIATE RELEASE) PO PRN (09:31)
--- NOTE | 2022-03-25 10:14 | CT Scan Report ---
CT SCAN OF THE ABDOMEN AND PELVIS COMBO LIVER PROTOCOL CLINICAL HISTORY: Metastatic survey. Chest mass and hepatic metastatic disease. COMPARISON STUDY: Chest CT dated 03/22/2022. TECHNIQUE: Before and following the IV administration of 94 cc of Optiray 320, CT scan of the abdome n and pelvis is performed from the lung bases to the proximal femora. The abdominal CT is performed u sing the liver protocol. Images are reviewed in the axial, sagittal, and coronal planes. IV contrast was administered without complication. A dose lowering technique was utilized adhering to the princip les of ROBYN. CT DOSE: 725.24 mGy.cm FINDINGS: Lung bases: The heart is normal in size and without pericardial effusion. There is a partially imaged lobular mass lesion in the left lower lobe abutting the major fissure. The measures up to 5.7 x 3.9 cm in axial dimension. Scattered calcified granulomas are observed. There is no airspace consolidatio n typical for pneumonia or pleural effusion. Atelectasis is noted at both lung bases. There is a smal l hiatal hernia. Liver: The contrast-enhanced liver is enlarged measuring 20.6 cm in length. The liver is infiltrated by extensive/multifocal hepatic metastatic disease. Lesions measure up to 3.8 cm in diameter. There i s no intrahepatic biliary ductal dilatation. Hepatic and portal vasculature: Hepatic arterial anatomy is conventional. The hepatic veins, the port al veins, the superior mesenteric vein, and the splenic vein are patent. Gallbladder: Unremarkable. Spleen: Normal in size and attenuation. Pancreas: There is a 4.4 x 3.1 cm mass lesion in the pancreatic tail on image #117. There is minimal surrounding infiltration. The proximal pancreas is normal in appearance, and the duct is normal in ca liber. Adrenal glands: Indeterminant bilateral adrenal nodules measure up to 1.4 cm. Kidneys: The contrast enhanced kidneys are normal in size and without hydronephrosis. The kidneys enh ance symmetrically. No renal calculi are identified on the unenhanced series. Abdominal vasculature: The abdominal aorta is normal in course and caliber noting mild atheroscleroti c calcification. 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 Bowel: There is no bowel obstruction. Moderate fecal retention is seen in the right colon. The append ix is well-visualized and normal. Peritoneum: There is a small amount of pelvic ascites. No intraperitoneal free air is identified. Lymphadenopathy: There is upper abdominal lymphadenopathy. A peripancreatic node on image #132 measur es 2.1 x 1.5 cm. A boston aggregate in the gilda hepatis on image #122 measures 3.6 x 2.9 cm. Pelvic viscera: The bladder, prostate, and seminal vesicles are normal as imaged. Skeletal structures: The skeletal structures are heterogeneous. Question subtle osseous metastatic le sions, most apparent in the left acetabulum on image #362. There are healed bilateral rib fractures. IMPRESSION: 1. Again seen is evidence of multifocal metastatic disease as detailed above. This includes a left lo wer lobe lung mass, extensive/diffuse hepatic metastatic disease, upper abdominal lymphadenopathy, an d a subtle 4.4 cm mass lesion in the pancreatic tail. The primary neoplasm cannot be delineated, with a primary lung cancer or pancreatic cancer favored. Tissue sampling will be required for definitive diagnosis. 2. Question subtle osseous metastatic disease. Consider nuclear bone scan or possibly PET for further assessment. 3. Small volume pelvic ascites. 4. Moderate fecal retention is seen in the right colon. 5. 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 6. Bilateral adrenal nodules are indeterminant. 7. Additional findings as above. ACT 112: Negative or not required by law. Electronically signed by: Kg Quintana M.D. 03/25/2022 10:11 AM
--- NOTE | 2022-03-25 11:20 | XRay Report ---
XR knee LT 1 or 2V routine CLINICAL HISTORY: left knee pain. COMPARISON STUDY: No previous studies for comparison. TECHNIQUE: 2 left knee views FINDINGS: Bones: There is no evidence for an acute fracture or dislocation. There is no lytic or blastic lesion . Joints: The joint spaces are maintained. There is no evidence for an intra-articular effusion. The mohan duyen are in anatomic alignment. Soft tissues: There is no focal soft tissue abnormality. There is no radiopaque foreign body. IMPRESSION: 1. No acute osseous pathology. ACT 112: Negative or not required by law. Electronically signed by: Juanito Hui M.D. 03/25/2022 11:18 AM
--- NOTE | 2022-03-25 11:38 | XRay Report ---
XR knee RT 1 or 2V routine CLINICAL HISTORY: right knee pain. COMPARISON STUDY: No previous studies for comparison. TECHNIQUE: 3 right knee views FINDINGS: Bones: There is no evidence for an acute fracture or dislocation. There is no evidence for an intra-a rticular effusion. There is no lytic or blastic lesion. Joints: The joint spaces are maintained. The bones are in anatomic alignment. Soft tissues: There is no focal soft tissue abnormality. There is no radiopaque foreign body. IMPRESSION: 1. No acute osseous pathology. ACT 112: Negative or not required by law. Electronically signed by: Juanito Hui M.D. 03/25/2022 11:36 AM
[2022-03-25] MEDS: LORazepam 2 MG/1 ML VIAL IV PRN (12:03)
[2022-03-25] MEDS: cefTRIAXone SODIUM 1,000 MG/50 ML BAG IV SCH (12:45)
--- NOTE | 2022-03-25 13:21 | Hospitalist Progress Note ---
Date of Service March 25, 2022 Assessment & Plan (1) Vomiting: (2) Hyponatremia: (3) Lung mass: (4) UTI (urinary tract infection): (5) Blurry vision: (6) Smoker: (7) Alcohol abuse: (8) DVT prophylaxis: Plan: Lung mass Brain lesions -Concerning for lung cancer with brain metastasis -continue decadron -Pulm consulted, patient had bronchoscopy 03/24 with biopsies -Rad/onc consulted, first cranial radiation 03/24 -Oncology consult pending Lower back pain -exam most consistent with muscle pain, continue scheduled tylenol 650mg TID, lidocaine patch to left flank, oxycodone 5mg Q 6PRN for severe pain (initially tramadol was considered but with brain lesions, will avoid) Bilateral Knee pain -exam is normal -B/l X rays ordered to evaluate for metastatic disease Hyponatremia -improved -encourage Carb controlled diet, 2L fluid restriction UTI -Urine culture +klebsiella, continue ceftriaxone Current smoker -nicotine patch Alcohol abuse -gabapentin taper -AWSS protocol DVT ppx SCDs for now, no AC with brain lesions noted on MRI Disposition -will ask for PT/OT evaluation Admission and Anticipated Discharge Date Admission Date: March 22, 2022 Subjective This morning patient was very restless. He did not sleep well overnight due to bilateral knee pain(left >right) He denies falling or trauma to his knees but reports they started hurting immensely yesterday after he came back from his studies Physical Exam Physical Exam: Thin, cachetic, appears dishevelled Respiratory: breathing comfortably on room air, no wheezing/rhonchi/rales Cardiovascular: regular rate and rhythm, no murmurs/rubs/gallops Gastrointestinal (Abdomen): soft, non tender, non distended Musculoskeletal: bilateral knees with no swelling, redness, or crepitus noted Neurologic: awake, alert, spontaneously moving extremities Results & Data Results & Data ([facility]) Vital Signs (Past 12 Hours) Vital Signs Temp Pulse Pulse Resp BP Pulse Ox 03/25/22 11:22 37.0 C 50 L 18 160/97 H 97 03/25/22 08:00 52 L 03/25/22 07:21 36.9 C 53 L 19 179/89 H 99 03/25/22 04:05 175/88 H 03/25/22 03:01 37 C 48 L 18 172/91 H 99 Laboratory Results Short CBC 03/25/22 Range/Units 05:45 WBC 14.75 H (4.8-10.8) K/uL Hgb 12.7 L (14.0-18.0) g/dL Hct 37.3 L (42-52) % Plt Count 278 (130-400) K/uL BMP 03/25/22 05:45 Sodium 131 L Potassium 4.2 Chloride 97 L Carbon Dioxide 28 BUN 15 Creatinine 0.60 Glucose 114 H Calcium 9.0 Cardiac Enzymes 03/25/22 Range/Units 05:45 Total Creatine Kinase 105 (30-223) U/L Medications Administered Current Inpatient Medications Acetaminophen (Acetaminophen 325 Mg Tab) 650 mg PO TID DAT Stop: 03/27/22 13:59 Last Admin: 03/25/22 07:37 Dose: 650 mg Documented by: Al Hydrox/Mg Hydrox/Simethicone (Aluminum/Magnesium Susp 30 Ml Udc) 15 ml PO Q4H PRN PRN Reason: Dyspepsia Stop: 04/21/22 13:58 Benzocaine (Benzocaine 20% (Orajel) 11.9 Gm Tube) 1 appln MT TID PRN PRN Reason: mouth pain Stop: 04/22/22 10:20 Last Admin: 03/23/22 10:54 Dose: 1 appln Documented by: Dexamethasone (Dexamethasone 4 Mg Tab) 4 mg PO TID [facility] Stop: 04/23/22 13:59 Last Admin: 03/25/22 07:40 Dose: 4 mg Documented by: Dextrose (Dextrose 50% 50 Ml Syringe) 25 - 50 ml IV UD PRN; Protocol PRN Reason: Hypoglycemia Protocol Stop: 04/21/22 20:33 Folic Acid (Folic Acid 1 Mg Tab) 1 mg PO QAM DAT Stop: 04/21/22 13:58 Last Admin: 03/25/22 07:39 Dose: 1 mg Documented by: Gabapentin (Gabapentin 600 Mg Tab) 600 mg PO Q24H [facility] Stop: 03/26/22 00:01 Glucagon (Glucagon For Inj 1 Mg Vial) 1 mg SQ UD PRN; Protocol PRN Reason: Hypoglycemia Protocol Stop: 04/21/22 20:33 Glucose (Glucose 10 Tabs/Tube) 4 - 8 tabs PO UD PRN; Protocol PRN Reason: Hypoglycemia Protocol Stop: 04/21/22 20:33 Glucose (Glucose 40% Gel 15 Gm Tube) 15 - 30 gm PO UD PRN; Protocol PRN Reason: Hypoglycemia Protocol Stop: 04/21/22 20:33 Ceftriaxone Sodium (Rocephin) 1,000 mg in 50 mls @ 100 mls/hr IV Q24H [facility] Stop: 04/03/22 10:59 Last Infusion: 03/25/22 13:07 Dose: Infused Documented by: Insulin Aspart (Insulin Aspart Per Unit) 0 units SC ACHS [facility] Stop: 04/21/22 20:59 Last Admin: 03/25/22 11:56 Dose: Not Given Documented by: Lidocaine (Lidocaine 5% 1 Patch) 1 patch TD QAM [facility] Stop: 04/22/22 11:44 Last Admin: 03/25/22 07:40 Dose: Not Given Documented by: Lorazepam (Lorazepam 2 Mg/1 Ml Vial) 1 mg IV Q4H PRN PRN Reason: Agitation Stop: 04/24/22 08:38 Last Admin: 03/25/22 12:03 Dose: 1 mg Documented by: Miscellaneous (Remove Nicoderm Patch) 1 ea N/A DAILY@0859 [facility] Stop: 04/22/22 08:58 Last Admin: 03/25/22 07:35 Dose: 1 ea Documented by: Miscellaneous (Carbohydrates For Hypoglycemia ) 15 - 30 gm PO UD PRN PRN Reason: Hypoglycemia Protocol Stop: 04/21/22 20:33 Miscellaneous (Remove Lidoderm Patch) 1 ea N/A DAILY@2100 [facility] Stop: 04/22/22 20:59 Last Admin: 03/24/22 20:33 Dose: 1 ea Documented by: Nicotine (Nicotine 21 Mg/24 Hr Tdsy) 21 mg TD QAM [facility] Stop: 04/21/22 13:58 Last Admin: 03/25/22 07:40 Dose: Not Given Documented by: Ondansetron HCl (Ondansetron Inj 2 Mg/Ml 2 Ml Vial) 4 mg IV Q6H PRN PRN Reason: Nausea Stop: 04/21/22 13:58 Oxycodone HCl (Oxycodone Hcl Ir 5 Mg Tab (Immediate Release)) 5 mg PO Q4H PRN PRN Reason: Pain Stop: 04/08/22 03:27 Last Admin: 03/25/22 09:31 Dose: 5 mg Documented by: Pantoprazole Sodium (Pantoprazole 40 Mg Tab) [facility] [place]: 03/28/22 09:01 Last Admin: 03/25/22 09:28 Dose: 40 mg Documented by: Polyethylene Glycol (Polyethylene (Miralax) 17 Gm Pack) 17 gm PO DAILY PRN PRN Reason: Constipation Stop: 04/21/22 13:58 Thiamine HCl (Thiamine Hcl 100 Mg Tab) 100 mg PO [facility] Stop: 04/22/22 08:59 Last Admin: 03/25/22 07:39 Dose: 100 mg Documented by: Trolamine Salicylate (Trolamine Salicylate 10% Crm 255 Appln/85 Gm Tube) 1 appln EXT [facility] Stop: 04/21/22 20:59 Last Admin: 03/24/22 20:31 Dose: 1 appln Documented by:
[2022-03-25] MEDS ORDERED: KETOROLAC TROMETHAMINE 15 MG/ML VIAL IV ONE (15:02)
--- NOTE | 2022-03-25 18:42 | Consultation Report ---
DATE OF SERVICE: 03/25/2022. REASON FOR CONSULTATION: Suspected small cell lung cancer. HISTORY OF PRESENT ILLNESS: A 51-year-old gentleman who presented to the ED on 03/22/2022 with complaints of dizziness and lower extremity muscle cramps. CT head obtained while in the ED on 03/22/2022 revealed two adjacent subependymal nodules along the occipital horn of the left lateral ventricle. CTA chest, also obtained on 03/22/2022 to evaluate for shortness of breath revealed no evidence of pulmonary embolism, incidentally revealed 5.4 cm left lower lobe mass, and 3 cm subpleural right lower lobe mass along with subcarinal and right hilar lymphadenopathy concerning for primary bronchogenic malignancy such as small cell lung cancer. Also noted on CTA chest were several lesions in the liver concerning for hepatic metastasis. Brain MRI performed on 03/22/2022 revealed numerous ring enhancing supratentorial and infratentorial lesions measuring up to 1.1 cm with mild associated vasogenic edema without mass effect consistent with metastasis as well as apparent marrow replacement within portions of the upper cervical spine. CT abdomen and pelvis performed on 03/25/2022 revealed evidence of multifocal metastatic disease including left lower lobe mass, extensive/diffuse hepatic metastatic disease, upper abdominal lymphadenopathy and 4.4 cm mass lesion in the pancreatic tail with question of osseous metastatic disease. On 03/24/2022, patient underwent endobronchial ultrasound with transbronchial needle aspiration of lymph nodes performed by Dr. Donohue with preliminary results concerning for small cell lung cancer. During my evaluation of patient, he complains of chest pain and shortness of breath. Gives a 3-pack per day history of smoking since he was 13 years old. PAST MEDICAL HISTORY: Significant for: 1. Alcohol abuse. 2. Suspected small cell lung cancer. PAST SURGICAL HISTORY: Denies any prior history of surgeries. MEDICATIONS PRIOR TO ADMISSION: No known home medications. ALLERGIES: PENICILLIN. SOCIAL HISTORY: Endorses more than [id number] history of smoking. Also, endorses significant alcohol use. Denies illicit drug use. FAMILY HISTORY: Significant for brain cancer in his brother. REVIEW OF SYSTEMS: CONSTITUTIONAL: He denies significant weight loss, fever, or night sweats. CARDIOVASCULAR: Denies chest pain, palpitations, dizziness, or diaphoresis. RESPIRATORY: Endorses shortness of breath. GASTROINTESTINAL: Denies abdominal pain, nausea, vomiting. NEUROLOGIC: Endorses lower extremity weakness and dizziness. PHYSICAL EXAMINATION: VITAL SIGNS: Blood pressure 156/89, heart rate 53, respiratory rate 17, temperature 37.3, and oxygen saturation 97% on room air. RESPIRATORY: Lung sounds were generally clear bilaterally. CARDIOVASCULAR: Heart was regular rate and rhythm without significant murmur, gallops, or rubs. GASTROINTESTINAL: No palpable hepatosplenomegaly. ABDOMEN: Soft with normal bowel sounds. LYMPHATIC SYSTEM: There was no palpable peripheral lymphadenopathy. MUSCULOSKELETAL: Unremarkable. EXTREMITIES: No peripheral edema. LABORATORY DATA: Significant for leukocytosis with white count of 14,000, hemoglobin of 12.7, hematocrit of 37.3, platelet count of 278,000 with chemistry significant for sodium of 131, potassium 4.2, chloride 97, BUN 15 and creatinine 0.60. IMAGING STUDIES: CTA chest on 03/22/2022. Impression: 1. No pulmonary emboli identified. 2. 5.4 cm left lower lobe mass and 3 cm subpleural right lower lobe mass. Subcarinal and conglomerate right hilar lymphadenopathy. These findings are consistent with neoplastic process. Differential considerations would include bronchogenic malignancy such as small cell. An abdominal primary given extensive hepatic metastatic disease also within differential. CT head on 03/22/2022: Impression: Two adjacent subependymal nodules along the occipital horn of the left ventricle. Brain MRI on 03/22/2022: Impression: 1. Numerous small ring enhancing supratentorial and infratentorial lesions that measure up to 1.1 cm. Mild associated vasogenic edema without mass effect. 2. Apparent marrow replacement with portions of upper cervical spine. CT abdomen and pelvis on 03/25/2022: Impression: Extensive evidence of multifocal metastatic disease including left lower lobe mass, extensive/diffuse hepatic metastatic disease, upper abdominal lymphadenopathy and 4.4 cm mass lesion in the pancreatic tail with question of osseous metastatic disease. IMPRESSION: 1. Suspected small cell lung cancer with extensive metastatic disease. 2. Hepatic metastasis. 3. Abdominal lymphadenopathy. 4. Possible osseous metastatic disease. Pleasant gentleman recently diagnosed with suspected small cell lung cancer with extensive metastasis involving the brain, liver and abdominal lymphadenopathy. Discussed my thoughts with the patient today. I explained to him that based on imaging studies, he appears to have stage IV disease for which goals of treatment would be to improve symptoms, prolong life and improve quality of life. Standard of care for extensive stage small cell lung cancer is combination chemoimmunotherapy with carboplatin day 1/etoposide day 1- 3/atezolizumab day 1 which will be given IV every 3 weeks for a total of 4 cycles followed possibly by maintenance immunotherapy. Would recommend obtaining a bone scan if possible prior to discharge in order to expedite treatment. If bone scan is not obtained prior to discharge, will obtain outpatient PET/CT for full staging. Patient was recently evaluated by Dr. Tolbert of Radiation Oncology who plans to give whole brain radiation treatment. Will plan to start patient on systemic treatment shortly after completion of radiation treatment. PLAN: 1. Recommend obtaining a bone scan to evaluate for bone metastasis. 2. Agree with whole brain radiation per Radiation Oncology recommendations. 3. Will arrange for outpatient PET/CT if bone scan cannot be obtained inpatient. 4. Patient will be evaluated in Oncology Clinic upon discharge to start him on palliative chemoimmunotherapy treatment. Thank you for this consult, Oncology will follow the patient upon discharge from hospital. Please feel free to call if you have any further questions. Job ID: [id number] [facility]ITALTanya
[2022-03-25] MEDS: TROLAMINE SALICYLATE 10% CRM 255 APPLN/85 GM TUBE EXT SCH (20:49)
[2022-03-26] MEDS ORDERED: GABAPENTIN 600 MG TAB PO SCH
[2022-03-26] MEDS: oxyCODONE HCL IR 5 MG TAB (IMMEDIATE RELEASE) PO PRN ×3 (04:31→14:17)
[2022-03-26 07:53] LABS: BUN Creatinine Ratio 26.9 (10-20); Calcium 8.9 mg/dl (8.5-10.1); Creatinine Clr Calc Pharmacy 126.6 ml/min; Est GFR (African American) 127.1 ml/min; Est GFR (Non-African American) 109.7 ml/min; Potassium 4.1 mmol/L (3.5-5.1)
[2022-03-26] MEDS: NICOTINE 21 MG/24 HR TDSY TD SCH (07:55)
[2022-03-26] MEDS: LIDOCAINE 5% 1 PATCH TD SCH (07:55)
[2022-03-26] MEDS: ACETAMINOPHEN 325 MG TAB PO SCH ×3 (07:58→20:30)
[2022-03-26] MEDS: FOLIC ACID 1 MG TAB PO SCH (08:00)
[2022-03-26] MEDS: dexAMETHasone 4 MG TAB PO SCH ×3 (08:00→20:29)
[2022-03-26] MEDS: PANTOprazole 40 MG TAB PO SCH (08:01)
[2022-03-26] MEDS: LORazepam 2 MG/1 ML VIAL IV PRN ×2 (08:01→14:18)
[2022-03-26] MEDS: THIAMINE HCL 100 MG TAB PO SCH (08:01)
[2022-03-26] MEDS: INSULIN ASPART PER UNIT SC SCH ×4 (08:06→20:09)
[2022-03-26 08:35] LABS: Hematocrit (blood only) 37.3 % (42-52); Hemoglobin 12.9 g/dL (14.0-18.0); Mean Corpuscular Hemoglobin 33.4 pg (25-34); Mean Corpuscular Hgb Conc 34.6 g/dL (32-36); Mean Corpuscular Volume 96.6 fL (80-100); Mean Platelet Volume 10.2 fL (7.4-10.4); Platelet Count 244 K/uL (130-400); RDW Coefficient of Variation 12.9 % (11.5-14.5); RDW Standard Deviation 44.9 fL (36.4-46.3); Red Blood Count 3.86 M/uL (4.7-6.1); White Blood Count 12.65 K/uL (4.8-10.8)
[2022-03-26] MEDS: cefTRIAXone SODIUM 1,000 MG/50 ML BAG IV SCH (11:04)
--- NOTE | 2022-03-26 15:52 | Hospitalist Progress Note ---
Date of Service March 26, 2022 Assessment & Plan (1) Lung cancer metastatic to brain: (2) Brain metastases: (3) UTI (urinary tract infection): (4) Smoker: (5) Alcohol abuse: Plan: Metastatic lung cancer (suspected) metastatic to brain, liver, LN - CT C/A/P 03/22-03/25 reviewed. MRI brain 03/22 reviewed. - S/p EBUS biopsy 03/24 by pulm- pathology pending - Seen by Onc- Bone scan ordered for osseous mets as recommended- Plan for OP palliative chemoimmunotherapy ooted - Seen by radiation onc- starting whole brain radiation today for 10 fractions - On decadron for vasogenic edema - Palliative eval pending - Pain controlled with current regimen Tobacco abuse- smokes 3 ppd. on nicotine patch. recommend complete cessation. Klebsiella UTI- urine clx 03/22 with Klebsiella aerogenes, blood clx negative. Currently on rocephin D3/7. Change to vantin at discharge. Alcohol abuse- on folate, thiamine. s/p gabapentin taper. AWSS protocol DVT ppx- SCDs for now, no AC with brain lesions noted on MRI Dispo- Pending bone scan. Will discuss with radiation onc regarding discharge plan. No PT/OT needs. Admission and Anticipated Discharge Date Admission Date: March 22, 2022 Subjective Seen and examined. States he would like to go home. Pain is controlled. Appetite okay. No bowel movement since admission. Voiding without issues. Did well with PT/OT. States her daughter is an RN and would like to her accompany him to his radiation treatment as she knows medical stuff better- he had already told the nurse about it. Physical Exam Physical Exam: General: Lying comfortably in bed, not in distress, on room air HEENT: EOMI, YVES, MMM Chest: Clear breath sounds bilaterally, no wheezes or crackles CVS: Regular rate and rhythm, normal heart sounds, no murmur Abdomen: Soft, non tender, not distended, normal bowel sounds Neuro: Awake, alert, oriented, conversing well, non focal Extremities: No cyanosis, clubbing or edema Results & Data Results & Data ([facility]) Vital Signs (Past 12 Hours) Vital Signs Temp Pulse Pulse Resp BP Pulse Ox 03/26/22 12:07 36.8 C 70 18 141/82 H 98 03/26/22 08:31 36.9 C 62 18 153/79 H 93 03/26/22 08:00 44 L 03/26/22 04:26 36.8 C 55 L 18 158/89 H 98 Laboratory Results Short CBC 03/26/22 Range/Units 06:09 WBC 12.65 H (4.8-10.8) K/uL Hgb 12.9 L (14.0-18.0) g/dL Hct 37.3 L (42-52) % Plt Count 244 (130-400) K/uL BMP 03/26/22 06:09 Sodium 129 L Potassium 4.1 Chloride 94 L Carbon Dioxide 28 BUN 18 Creatinine 0.67 Glucose 103 H Calcium 8.9 Medications Administered Current Inpatient Medications Acetaminophen (Acetaminophen 325 Mg Tab) 650 mg PO TID DAT Stop: 03/27/22 13:59 Last Admin: 03/26/22 14:16 Dose: 650 mg Documented by: Al Hydrox/Mg Hydrox/Simethicone (Aluminum/Magnesium Susp 30 Ml Udc) 15 ml PO Q4H PRN PRN Reason: Dyspepsia Stop: 04/21/22 13:58 Benzocaine (Benzocaine 20% (Orajel) 11.9 Gm Tube) 1 appln MT TID PRN PRN Reason: mouth pain Stop: 04/22/22 10:20 Last Admin: 03/23/22 10:54 Dose: 1 appln Documented by: Dexamethasone (Dexamethasone 4 Mg Tab) 4 mg PO TID [facility] Stop: 04/23/22 13:59 Last Admin: 03/26/22 14:18 Dose: 4 mg Documented by: Dextrose (Dextrose 50% 50 Ml Syringe) 25 - 50 ml IV UD PRN; Protocol PRN Reason: Hypoglycemia Protocol Stop: 04/21/22 20:33 Folic Acid (Folic Acid 1 Mg Tab) 1 mg PO QAM [facility] Stop: 04/21/22 13:58 Last Admin: 03/26/22 08:00 Dose: 1 mg Documented by: Glucagon (Glucagon For Inj 1 Mg Vial) 1 mg SQ UD PRN; Protocol PRN Reason: Hypoglycemia Protocol Stop: 04/21/22 20:33 Glucose (Glucose 10 Tabs/Tube) 4 - 8 tabs PO UD PRN; Protocol PRN Reason: Hypoglycemia Protocol Stop: 04/21/22 20:33 Glucose (Glucose 40% Gel 15 Gm Tube) 15 - 30 gm PO UD PRN; Protocol PRN Reason: Hypoglycemia Protocol Stop: 04/21/22 20:33 Ceftriaxone Sodium (Rocephin) 1,000 mg in 50 mls @ 100 mls/hr IV Q24H [facility] Stop: 03/30/22 10:59 Last Infusion: 03/26/22 11:48 Dose: Infused Documented by: Insulin Aspart (Insulin Aspart Per Unit) 0 units SC ACHS [facility] Stop: 04/21/22 20:59 Last Admin: 03/26/22 12:14 Dose: 4 units Documented by: Lidocaine (Lidocaine 5% 1 Patch) 1 patch TD QAM [facility] Stop: 04/22/22 11:44 Last Admin: 03/26/22 07:55 Dose: Not Given Documented by: Lorazepam (Lorazepam 2 Mg/1 Ml Vial) 1 mg IV Q4H PRN PRN Reason: Agitation Stop: 04/24/22 08:38 Last Admin: 03/26/22 14:18 Dose: 1 mg Documented by: Miscellaneous (Remove Nicoderm Patch) 1 ea N/A DAILY@0859 [facility] Stop: 04/22/22 08:58 Last Admin: 03/26/22 07:55 Dose: Not Given Documented by: Miscellaneous (Carbohydrates For Hypoglycemia ) 15 - 30 gm PO UD PRN PRN Reason: Hypoglycemia Protocol Stop: 04/21/22 20:33 Miscellaneous (Remove Lidoderm Patch) 1 ea N/A DAILY@2100 [facility] Stop: 04/22/22 20:59 Last Admin: 03/25/22 20:49 Dose: 1 ea Documented by: Nicotine (Nicotine 21 Mg/24 Hr Tdsy) 21 mg TD QAM [facility] Stop: 04/21/22 13:58 Last Admin: 03/26/22 07:55 Dose: Not Given Documented by: Ondansetron HCl (Ondansetron Inj 2 Mg/Ml 2 Ml Vial) 4 mg IV Q6H PRN PRN Reason: Nausea Stop: 04/21/22 13:58 Oxycodone HCl (Oxycodone Hcl Ir 5 Mg Tab (Immediate Release)) 5 mg PO Q4H PRN PRN Reason: Pain Stop: 04/08/22 03:27 Last Admin: 03/26/22 14:17 Dose: 5 mg Documented by: Pantoprazole Sodium (Pantoprazole 40 Mg Tab) [facility] [place] Stop: 03/28/22 09:01 Last Admin: 03/26/22 08:01 Dose: 40 mg Documented by: Polyethylene Glycol (Polyethylene (Miralax) 17 Gm Pack) 17 gm PO DAILY PRN PRN Reason: Constipation Stop: 04/21/22 13:58 Thiamine HCl (Thiamine Hcl 100 Mg Tab) 100 mg PO [facility] Stop: 04/22/22 08:59 Last Admin: 03/26/22 08:01 Dose: 100 mg Documented by: Trolamine Salicylate (Trolamine Salicylate 10% Crm 255 Appln/85 Gm Tube) 1 appln EXT [facility] Stop: 04/21/22 20:59 Last Admin: 03/25/22 20:49 Dose: 1 appln Documented by:
[2022-03-26] MEDS ORDERED: POLYETHYLENE (MIRALAX) 17 GM PACK PO PRN (18:01)
[2022-03-26] MEDS: TROLAMINE SALICYLATE 10% CRM 255 APPLN/85 GM TUBE EXT SCH (20:31)
[2022-03-26] MEDS: DOCUSATE SODIUM/SENNA 50/8.6MG TAB PO SCH (20:38)
[2022-03-27] MEDS: LORazepam 2 MG/1 ML VIAL IV PRN (07:39)
[2022-03-27] MEDS: oxyCODONE HCL IR 5 MG TAB (IMMEDIATE RELEASE) PO PRN (07:39)
[2022-03-27 07:52] LABS: Hematocrit (blood only) 38.4 % (42-52); Hemoglobin 13.6 g/dL (14.0-18.0); Mean Corpuscular Hgb Conc 35.4 g/dL (32-36); Mean Platelet Volume 9.8 fL (7.4-10.4); Platelet Count 270 K/uL (130-400); RDW Coefficient of Variation 12.8 % (11.5-14.5); RDW Standard Deviation 44.9 fL (36.4-46.3); White Blood Count 13.91 K/uL (4.8-10.8)
[2022-03-27] MEDS: INSULIN ASPART PER UNIT SC SCH ×4 (08:04→20:16)
[2022-03-27 08:11] LABS: BUN Creatinine Ratio 28.8 (10-20); Calcium 9.2 mg/dl (8.5-10.1); Creatinine Clr Calc Pharmacy 143.4 ml/min; Est GFR (Non-African American) 115.6 ml/min; Magnesium 2.4 mg/dl (1.7-2.4); Phosphorus 4.3 mg/dl (2.5-4.9); Potassium 4.1 mmol/L (3.5-5.1)
[2022-03-27] MEDS: NICOTINE 21 MG/24 HR TDSY TD SCH (10:31)
[2022-03-27] MEDS: LIDOCAINE 5% 1 PATCH TD SCH (10:58)
[2022-03-27] MEDS: PANTOprazole 40 MG TAB PO SCH (10:59)
[2022-03-27] MEDS: THIAMINE HCL 100 MG TAB PO SCH (10:59)
[2022-03-27] MEDS: ACETAMINOPHEN 325 MG TAB PO SCH (10:59)
[2022-03-27] MEDS: dexAMETHasone 4 MG TAB PO SCH ×3 (11:00→20:17)
[2022-03-27] MEDS: FOLIC ACID 1 MG TAB PO SCH (11:00)
--- NOTE | 2022-03-27 11:19 | Nuclear Medicine Report ---
WHOLE BODY BONE SCAN HISTORY: Chest mass with hepatic metastatic disease. evaluate bone mets RADIOTRACER: 25.3 mCi Tc-99m MDP STUDY/IMAGES: Planar anterior and posterior whole body imaging was performed 3 hours following the i ntravenous administration of radiotracer. COMPARISON: Abdomen and pelvis CT 03/25/2022. FINDINGS: There are subtle areas of heterogeneous radiotracer uptake within the pelvis and proximal f emurs concerning for metastatic disease. Additional areas of radiotracer uptake within the ribs corre spond to old/healing fractures. Punctate focus of radiotracer uptake within the left upper cervical s pine is indeterminate but may represent facet degenerative change. IMPRESSION: There are subtle areas of heterogeneous radiotracer uptake within the pelvis and proximal femurs conc erning for metastatic disease. ACT 112: Negative or not required by law. Electronically signed by: Manjeet Brown M.D. 03/27/2022 11:17 AM
[2022-03-27] MEDS: cefTRIAXone SODIUM 1,000 MG/50 ML BAG IV SCH (12:59)
[2022-03-27] MEDS: DOCUSATE SODIUM/SENNA 50/8.6MG TAB PO SCH ×2 (13:00→21:13)
--- NOTE | 2022-03-27 13:39 | Hospitalist Progress Note ---
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 Subcarinal and conglomerate right hilar lymphadenopathy. These findings are consistent with a neoplastic process. - CT abdomen 03/25- Again seen is evidence of multifocal metastatic disease as detailed above. This includes a left lower lobe lung mass, extensive/diffuse hepatic metastatic disease, upper abdominal lymphadenopathy, and a subtle 4.4 cm mass lesion in the pancreatic tail. - MRI brain 03/22- Numerous small ring-enhancing supratentorial and infratentorial lesions which measure up to 1.1 cm with mild associated vasogenic edema without mass effect. These are consistent with metastases. - S/p EBUS biopsy 03/24 by pulm- pathology shows metastatic small cell carcinoma - Bone scan 03/27 with subtle areas of heterogeneous radiotracer uptake within pelvis and proximal femur concerning for mets - Seen by Oncology 03/25- Plan for OP palliative chemoimmunotherapy ooted - Seen by radiation onc- started on whole brain radiation 03/26 for 10 fractions - On decadron for vasogenic edema - Palliative eval pending - Pain controlled with current regimen Pathology result 03/24 Lymph node, ST seven (fine-needle aspiration): - Metastatic small cell carcinoma is seen. Flow cytometry Diagnosis: Fluid: No flow immunophenotypic evidence of a lymphoproliferative disorder. Large population of CD56+, CD45- cells. See comments. Comments: A large population of CD45 negative, CD56 positive cells are present. The findings could be consistent with a neuroendocrine carcinoma. B-cells are polyclonal and T-cells have no loss of T-cell antigens. There is no flow immunophenotypic evidence of a B- or T-cell lymphoproliferative disorder. Correlation with morphology, clinical history and other diagnostic information is recommended. Tobacco abuse- smokes 3 ppd. on nicotine patch. recommend complete cessation but he is not ready to quit Klebsiella UTI- urine clx 03/22 with Klebsiella aerogenes, blood clx negative. Currently on rocephin D4/7. Change to vantin at discharge. Alcohol abuse- on folate, thiamine. s/p gabapentin taper. AWSS protocol. Recommended cessation, he is not ready. DVT ppx- SCDs for now, no anticoagulation with brain lesions noted on MRI Dispo- Pending palliative evaluation. No PT/OT needs. Per radiation oncology, he can be discharged any time and will follow up for remaining radiation treatment- patient says he can have someone bring to the radiation treatment daily. Admission and Anticipated Discharge Date Admission Date: March 22, 2022 Subjective States his pain seems to migrate- previously in knees now on back. Still no bowel movement yet. Appetite okay. States he can come daily for radiation treatment. No other issues. Physical Exam Physical Exam: General: Lying comfortably in bed, not in distress, on room air HEENT: EOMI, YVES, MMM Chest: Clear breath sounds bilaterally, no wheezes or crackles CVS: Regular rate and rhythm, normal heart sounds, no murmur Abdomen: Soft, non tender, not distended, normal bowel sounds Neuro: Awake, alert, oriented, conversing well, non focal Extremities: No cyanosis, clubbing or edema Results & Data Results & Data ([facility]) Vital Signs (Past 12 Hours) Vital Signs Temp Pulse Resp BP Pulse Ox 03/27/22 12:04 36.6 C 79 18 115/60 97 03/27/22 07:59 36.5 C 51 L 18 144/73 H 96 03/27/22 05:00 36.5 C 48 L 18 152/96 H 99 Laboratory Results Short CBC 03/27/22 Range/Units 06:35 WBC 13.91 H (4.8-10.8) K/uL Hgb 13.6 L (14.0-18.0) g/dL Hct 38.4 L (42-52) % Plt Count 270 (130-400) K/uL BMP 03/27/22 06:35 Sodium 132 L Potassium 4.1 Chloride 96 L Carbon Dioxide 28 BUN 17 Creatinine 0.59 L Glucose 105 H Calcium 9.2 Diagnostic Findings Bone Scan Nuclear Medicine 03/27/22 07:30 WHOLE BODY BONE SCAN HISTORY: Chest mass with hepatic metastatic disease. evaluate bone mets RADIOTRACER: 25.3 mCi Tc-99m MDP STUDY/IMAGES: Planar anterior and posterior whole body imaging was performed 3 hours following the intravenous administration of radiotracer. COMPARISON: Abdomen and pelvis CT 03/25/2022. FINDINGS: There are subtle areas of heterogeneous radiotracer uptake within the pelvis and proximal femurs concerning for metastatic disease. Additional areas of radiotracer uptake within the ribs correspond to old/healing fractures. Punctate focus of radiotracer uptake within the left upper cervical spine is indeterminate but may represent facet degenerative change. IMPRESSION: There are subtle areas of heterogeneous radiotracer uptake within the pelvis and proximal femurs concerning for metastatic disease. ACT 112: Negative or not required by law. Electronically signed by: Manjeet Brown M.D. 03/27/2022 11:17 AM Medications Administered Current Inpatient Medications Acetaminophen (Acetaminophen 325 Mg Tab) 650 mg PO TID [facility] Stop: 03/27/22 13:59 Last Admin: 03/27/22 10:59 Dose: 650 mg Documented by: Al Hydrox/Mg Hydrox/Simethicone (Aluminum/Magnesium Susp 30 Ml Udc) 15 ml PO Q4H PRN PRN Reason: Dyspepsia Stop: 04/21/22 13:58 Benzocaine (Benzocaine 20% (Orajel) 11.9 Gm Tube) 1 appln MT TID PRN PRN Reason: mouth pain Stop: 04/22/22 10:20 Last Admin: 03/23/22 10:54 Dose: 1 appln Documented by: Dexamethasone (Dexamethasone 4 Mg Tab) 4 mg PO TID DAT Stop: 04/23/22 13:59 Last Admin: 03/27/22 11:00 Dose: 4 mg Documented by: Dextrose (Dextrose 50% 50 Ml Syringe) 25 - 50 ml IV UD PRN; Protocol PRN Reason: Hypoglycemia Protocol Stop: 04/21/22 20:33 Folic Acid (Folic Acid 1 Mg Tab) 1 mg PO QAM DAT Stop: 04/21/22 13:58 Last Admin: 03/27/22 11:00 Dose: 1 mg Documented by: Glucagon (Glucagon For Inj 1 Mg Vial) 1 mg SQ UD PRN; Protocol PRN Reason: Hypoglycemia Protocol Stop: 04/21/22 20:33 Glucose (Glucose 10 Tabs/Tube) 4 - 8 tabs PO UD PRN; Protocol PRN Reason: Hypoglycemia Protocol Stop: 04/21/22 20:33 Glucose (Glucose 40% Gel 15 Gm Tube) 15 - 30 gm PO UD PRN; Protocol PRN Reason: Hypoglycemia Protocol Stop: 04/21/22 20:33 Ceftriaxone Sodium (Rocephin) 1,000 mg in 50 mls @ 100 mls/hr IV Q24H [facility] Stop: 03/30/22 10:59 Last Infusion: 03/27/22 13:39 Dose: Infused Documented by: Insulin Aspart (Insulin Aspart Per Unit) 0 units SC ACHS [facility] Stop: 04/21/22 20:59 Last Admin: 03/27/22 12:43 Dose: Not Given Documented by: Lidocaine (Lidocaine 5% 1 Patch) 1 patch TD QAM [facility] Stop: 04/22/22 11:44 Last Admin: 03/27/22 10:58 Dose: 1 patch Documented by: Lorazepam (Lorazepam 2 Mg/1 Ml Vial) 1 mg IV Q4H PRN PRN Reason: Agitation Stop: 04/24/22 08:38 Last Admin: 03/27/22 07:39 Dose: 1 mg Documented by: Miscellaneous (Remove Nicoderm Patch) 1 ea N/A DAILY@0859 [facility] Stop: 04/22/22 08:58 Last Admin: 03/27/22 10:30 Dose: Not Given Documented by: Miscellaneous (Carbohydrates For Hypoglycemia ) 15 - 30 gm PO UD PRN PRN Reason: Hypoglycemia Protocol Stop: 04/21/22 20:33 Miscellaneous (Remove Lidoderm Patch) 1 ea N/A DAILY@2100 [facility] Stop: 04/22/22 20:59 Last Admin: 03/26/22 20:29 Dose: 1 ea Documented by: Nicotine (Nicotine 21 Mg/24 Hr Tdsy) 21 mg TD QAM [facility] Stop: 04/21/22 13:58 Last Admin: 03/27/22 10:31 Dose: Not Given Documented by: Ondansetron HCl (Ondansetron Inj 2 Mg/Ml 2 Ml Vial) 4 mg IV Q6H PRN PRN Reason: Nausea Stop: 04/21/22 13:58 Last Admin: 03/27/22 04:27 Dose: 4 mg Documented by: Oxycodone HCl (Oxycodone Hcl Ir 5 Mg Tab (Immediate Release)) 5 mg PO Q4H PRN PRN Reason: Pain Stop: 04/08/22 03:27 Last Admin: 03/27/22 07:39 Dose: 5 mg Documented by: Pantoprazole Sodium (Pantoprazole 40 Mg Tab) 40 mg PO QAM [facility] Stop: 03/28/22 09:01 Last Admin: 03/27/22 10:59 Dose: 40 mg Documented by: Polyethylene Glycol (Polyethylene (Miralax) 17 Gm Pack) 17 gm PO DAILY PRN PRN Reason: Constipation Stop: 04/25/22 18:00 Senna/Docusate Sodium (Docusate Sodium/Senna 50/8.6mg Tab) 1 tab PO BID DAT Stop: 04/25/22 20:59 Last Admin: 03/27/22 13:00 Dose: 1 tab Documented by: Thiamine HCl (Thiamine Hcl 100 Mg Tab) 100 mg PO QAM [facility] Stop: 04/22/22 08:59 Last Admin: 03/27/22 10:59 Dose: 100 mg Documented by: Trolamine Salicylate (Trolamine Salicylate 10% Crm 255 Appln/85 Gm Tube) 1 appln EXT HS [facility] Stop: 04/21/22 20:59 Last Admin: 03/26/22 20:31 Dose: 1 appln Documented by:
[2022-03-27] MEDS: TROLAMINE SALICYLATE 10% CRM 255 APPLN/85 GM TUBE EXT SCH (20:18)
[2022-03-28 06:48] VITALS: BP 151/79; TEMP 98.1; O2SAT 99
[2022-03-28] MEDS: NICOTINE 21 MG/24 HR TDSY TD SCH (07:43)
[2022-03-28] MEDS: dexAMETHasone 4 MG TAB PO SCH (07:44)
[2022-03-28] MEDS: PANTOprazole 40 MG TAB PO SCH (07:44)
[2022-03-28] MEDS: DOCUSATE SODIUM/SENNA 50/8.6MG TAB PO SCH (07:45)
[2022-03-28] MEDS: THIAMINE HCL 100 MG TAB PO SCH (07:45)
[2022-03-28] MEDS: FOLIC ACID 1 MG TAB PO SCH (07:45)
[2022-03-28] MEDS: LIDOCAINE 5% 1 PATCH TD SCH (07:46)
[2022-03-28] MEDS: oxyCODONE HCL IR 5 MG TAB (IMMEDIATE RELEASE) PO PRN (07:50)
[2022-03-28] MEDS: INSULIN ASPART PER UNIT SC SCH ×2 (08:15→12:04)
[2022-03-28] MEDS: cefTRIAXone SODIUM 1,000 MG/50 ML BAG IV SCH (10:36)
[2022-03-28 11:31] VITALS: PULSE 47
--- NOTE | 2022-03-28 15:32 | Discharge Summary ---
Date of Service March 28, 2022 Admission HPI Per Admitting Provider 51 yo M smoker presents with vomiting, chest pain and lightheadedness/presyncope. Found to have 5cm lung mass on the left per CT scan of the chest. UTI also present in man. Hyponatremia in setting of dehydration and new lung mass with Na 121. Received 1L NSS and Rocephin 1gm IV. Concerning features on CT head may indicate metastatic disease. Pt states that he began having vomiting and diarrhea 4-5 days ago. The diarrhea stopped but he hasn't been able to keep down anything to eat or drink. He is a heavy drinker of alcohol taking in a case of beer daily "on a good day" with last drink just prior to arrival this morning. He smokes 3 packs of rolled cigarettes daily and smokes marijuana "when I can get it." He describes a constant headache on the top of his head for the last 5 days and also blurry vis ion. He is nearsighted at baseline and typically uses OTC readers, but now has difficulty seeing signs at a distance. For his headache he reports taking 2 tylenol and 2 Advil three times daily for the past few days, and this hasn't helped his headache. He denies fevers, chills, but reports increased frequency of urination and during this 30 minute interview, he went to the bathroom at least twice. Has a cough present which he describes as his typical "smoker's cough." This is nonproductive and he denies any recent changes in cough frequency or sputum changes. He reports having bilateral chest pain that is chronic for one month and is lateral lower along rib line. He denies any triggers to make this worse or alleviating factors. He describes feeling lightheaded but is able to walk. He denies any focal weakness on the right leg, but states that he is cramping in that leg more for the last few days. He has been using Icy Hot on his knees at night to help him sleep , reporting stiffness and discomfort. On average he does drink more liquids than he eats solid foods given the amount of alcohol he takes in regularly. He is present with his mother at bedside who corroborated the information; the patient lives alone but they work together. Admission Exam Per Admitting Provider CONSTITUTIONAL: thin, vitals as above, generally well-appearing, NAD EYES: EOMI bilaterally, PERRL, normal conjunctivae, no scleral icterus, no fundoscopic abnormality in his nondilated eyes. ENT: external ear and nose normal, oropharynx clear, poor dentition with missing teeth NECK: trachea midline, no lymphadenopathy RESPIRATORY: clear to auscultation bilaterally, no crackles, rales or wheezes, normal respiratory effort CARDIOVASCULAR: regular rate and rhythm, S1 and 2 heard without murmurs, gallops or rubs, no JVD, no peripheral edema CHEST: inspection of chest was normal GASTROINTESTINAL: soft, TTP in RUQ, no hepatomegaly, no guarding MUSCULOSKELETAL: strength 5/5 throughout, head is normocephalic and atraumatic, neck supple, normal palpation of chest wall without tenderness SKIN: warm and dry, no rashes (could not see legs because of restrictive jeans and boots.) NEUROLOGIC: PERRL, EOMI, no facial palsy, no dysarthria. Touch, pain and proprioception normal. CN 2-12 grossly intact, no sensory deficit, normal cognition, normal speech, no tremor PSYCHIATRIC: alert cooperative and oriented to person, place and time. Euthymic mood, makes good eye contact, language grossly intact, recent and remote memory grossly intact. Principal Diagnosis Metastatic small cell lung carcinoma metastatic to brain, bone, LN, liver Discharge Exam General: Lying comfortably in bed, not in distress, on room air HEENT: EOMI, YVES, MMM Chest: Clear breath sounds bilaterally, no wheezes or crackles CVS: Regular rate and rhythm, normal heart sounds, no murmur Abdomen: Soft, non tender, not distended, normal bowel sounds Neuro: Awake, alert, oriented, conversing well, non focal Extremities: No cyanosis, clubbing or edema Discharge Data Allergies Allergy/AdvReac Type Severity Reaction Status Date / Time Penicillins AdvReac Intermediate upset Unverified 03/22/22 11:12 stomach Consultations 03/22/22 11:00 ED Decision to Admit Stat 03/22/22 13:59 Consult Pulmonology Routine 03/22/22 16:56 Consult Oncology Routine Consult Radiation Oncology Routine 03/25/22 15:03 Consult Palliative Care Routine Procedures Performed Operation Date: 03/24/22 08:30 <No data on this case meets the specified criteria> Operation Date: 03/24/22 08:30 Actual Procedures p Endobronchial Ultrasound (EBUS)(Bilateral) - Casey Donohue MD Ordered Studies 03/22/22 09:46 CT angio chest PE protocol Stat CT head/brain wo con Stat 03/22/22 12:05 MR brain wo/w con Routine 03/24/22 CT guide rad therapy head Routine 03/25/22 03:24 US venous doppler LE BI Urgent 03/25/22 08:23 CT abdomen pelvis wo/w con Routine Hospital Course (1) Lung cancer metastatic to brain: (2) Brain metastases: (3) UTI (urinary tract infection): (4) Smoker: (5) Alcohol abuse: 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 Subcarinal and conglomerate right hilar lymphadenopathy. These findings are consistent with a neoplastic process. - CT abdomen 03/25- Again seen is evidence of multifocal metastatic disease as detailed above. This includes a left lower lobe lung mass, extensive/diffuse hepatic metastatic disease, upper abdominal lymphadenopathy, and a subtle 4.4 cm mass lesion in the pancreatic tail. - MRI brain 03/22- Numerous small ring-enhancing supratentorial and infratentorial lesions which measure up to 1.1 cm with mild associated vasogenic edema without mass effect. These are consistent with metastases. - S/p EBUS biopsy 03/24 by pulm- pathology shows metastatic small cell carcinoma - Bone scan 03/27 with subtle areas of heterogeneous radiotracer uptake within pelvis and proximal femur concerning for mets - Seen by Oncology 03/25- Plan for OP palliative chemoimmunotherapy noted - Seen by radiation onc- started on whole brain radiation 03/26 for 10 fractions- ok to discharge per rad onc and they will coordinate further radiation treatment. He states he has good support and can come for the radiation treatment without issues. - Continue decadron taper for vasogenic edema - Patient does not have a PCP and was set up who will refer him to palliative as patient could not be seen by palliative inhouse - Being discharged on some prn oxy (30 pills) and lidocaine patch for the pain- PDMP checked- no red flag signs. He persistently declined bowel regimen. Pathology result 03/24 Lymph node, ST seven (fine-needle aspiration): - Metastatic small cell carcinoma is seen. Flow cytometry Diagnosis: Fluid: No flow immunophenotypic evidence of a lymphoproliferative disorder. Large population of CD56+, CD45- cells. See comments. Comments: A large population of CD45 negative, CD56 positive cells are present. The findings could be consistent with a neuroendocrine carcinoma. B-cells are polyclonal and T-cells have no loss of T-cell antigens. There is no flow immunophenotypic evidence of a B- or T-cell lymphoproliferative disorder. Correlation with morphology, clinical history and other diagnostic information is recommended. Tobacco abuse- smokes 3 ppd. on nicotine patch. recommend cessation/cutting down- states he is not going to smoke anymore Klebsiella UTI- urine clx 03/22 with Klebsiella aerogenes, blood clx negative. On rocephin inhouse being discharged on vantin to complete 7 day course. Alcohol abuse- on folate, thiamine. s/p gabapentin taper. recommended complete cessation of alcohol- states he is not going to drink anymore. Seen by PT. Cleared for discharge home without any further needs. Anxious to get discharged. Updated daughter Charmaine over the phone and reviewed discharge plan in detail and answered all questions. Total Time Total Time Spent Total Time Spent (In Minutes): 45 Discharge Plan Discharge Items Patient Disposition: Home - Self-Care Reason For Visit: VOMITING, HYPONATREMIA,LUNG MASS,UTI Discharge Diagnosis: Metastatic small cell lung cancer metastatic to brain, bones, liver, lymph node Activity: Resume your previous activity Non-emergency contact: Primary Care Provider Call non-emergency contact if: you have any medication questions, your symptoms worsen and your pain is not controlled Follow-up/Referrals: [facility] [Other] ([address] [place] [address] Dr Rod's Office will call you with an appointment.) Efrain Myers MD [Outside Practitioners] - (Date & Time 04/01/2022 11:00 AM Provider Efrain Myers MD [facility] [address] [place] [address] ) Diet: Regular Addtl Attending Provider Instructions: You have lung cancer which is also in the brain, bones, liver and lymph nodes Please follow up with radiation oncology to complete the radiation treatment of the brain Follow up with the cancer doctor to start on the chemotherapy for lung cancer Recommend complete smoking and alcohol cessation Follow up with family doctor for further pain medications if needed and for referral to palliative doctors Complete antibiotic course with vantin starting tomorrow morning for your urine infection Complete the decadron course for the swelling in your brain due to cancer Pending Studies at Discharge: No Stand-Alone Forms: [facility], Smoking Cessation Medications and DC Order Prescriptions: New oxycodone 5 mg Tablet 5 mg PO Q6 PRN (Reason: pain) Qty: 30 RF: 0 lidocaine 5 % Adhesive Patch,Medicated 1 patch transdermal QAM Qty: 30 RF: 0 folic acid 1 mg Tablet 1 mg PO QAM Qty: 30 RF: 0 thiamine HCl (vitamin B1) 100 mg Tablet 100 mg PO QAM Qty: 30 RF: 0 cefpodoxime 200 mg tablet 200 mg PO BID Qty: 6 RF: 0 dexamethasone 4 mg tablet 4 mg PO UD Qty: 21 RF: 0 Discharge Orders: Discharge Order (Routine); Ordered 03/28/22 Ordered By: Eliseo Ugalde/Other Patient Handouts: Cefpodoxime Oral Tablet 200 mg, Thiamine Oral Tablet 50 mg, Folic Acid Oral Tablet 1 mg, Dexamethasone Oral Tablet 4 mg, Oxycodone Oral Tablet 5 mg, Lidoderm Medicated Patch 5% Admission Data Admit Date/Time: 03/22/22 10:56 Attending Provider: Eliseo Rosenberg Admit Provider: Allison Loomis Primary Care Provider: Wes Vazquez Other Providers: Allison Loomis ; Stevo Linn ; Emmanuel Day V. ; Marsha Mishra ; Laney Boyle ; Yair Milan ; Ray Paredes ; Kang Griffiths ; Moraima Rod ; Aliya,No Attending ; Antonio Shelley ; Lindsay Plasencia Other Interventions: Discharge Summary Assessment (RN) Last Done: 03/28/22 11:30
== END 2022-03-28 14:45 | disposition home or self-care (01) | DRG 166 ==
LOC: ED 08:07 → SUATTDRO 10:56 → 1E 10:56 → 2S 18:38